=== PATIENT | female | born 1960 | race Caucasian/White ===

== ENCOUNTER 2018-04-29 11:19 | Inpatient (IN) | payer MEDICAID, OTHER ==
[~2018-04-29] VITALS: Ht 165.1 cm; Wt 58.7 kg
[~2018-04-29 11:19] MED LIST: ARIP10TA8 PO; BENZ0.5T32 PO; BUPR-93 PO; BUSP15 PO; CLON.5 PO; DIPH25 PO; ESZO3 PO; GABA-533 PO; TOPI200T PO
[2018-04-29] MEDS ORDERED: METH10SO PO (13:28)
[2018-04-29 13:41] LABS: BASOPHILS % (AUTO) 0.4 % (0.0-2.0); EOSINOPHILS % (AUTO) 1.1 % (1.0-6.0); HEMATOCRIT 32.1 % (36-46); HEMOGLOBIN 11.3 g/dL (12.0-16.0); LYMPHOCYTES # (AUTO) 1.5 K/uL (1.0-4.8); LYMPHOCYTES % (AUTO) 17.5 % (22.0-44.0); MEAN CORPUSCULAR HEMOGLOBIN 31.5 pg (26.0-34.0); MEAN CORPUSCULAR HGB CONC 35.2 G/dL (31.0-37.0); MEAN CORPUSCULAR VOLUME 90 fL (80-100); MONOCYTES # (AUTO) 0.7 K/uL (0.1-1.0); MONOCYTES % (AUTO) 8.4 % (2.0-9.0); NEUTROPHILS # (AUTO) 6.4 K/uL (1.8-7.7); NEUTROPHILS % (AUTO) 72.6 % (40.0-70.0); PLATELET COUNT (AUTO) 187 K/uL (150-450); RED BLOOD CELL COUNT(AUTO) 3.59 MIL/uL (4.00-5.20); RED CELL DISTRIBUTION WIDTH 13.7 % (11.5-14.5)
[2018-04-29 13:50] LABS: ANION GAP 8 mmol/L (8-16); CALCIUM, TOTAL 8.5 mg/dL (8.8-10.5); CARBON DIOXIDE 28 mmol/L (22-29); CHLORIDE 104 mmol/L (98-107); CREATININE 0.87 mg/dL (0.60-1.30); GLOMERULAR FILTR. RATE CALC > 60 mL/min (>60); GLUCOSE,RANDOM 93 mg/dL (70-110); POTASSIUM 4.2 mmol/L (3.5-5.1); SODIUM SERUM 140 mmol/L (136-145); UREA NITROGEN, BLOOD 17 mg/dL (7-18)
[2018-04-29 14:03] LABS: ALANINE AMINOTRANSFERASE 28 U/L (12-78); ALBUMIN 3.3 g/dL (3.4-5.0); ALKALINE PHOSPHATASE 97 U/L (46-116); ASPARTATE AMINOTRANSFERASE 31 U/L (15-37); BILIRUBIN,TOTAL 0.3 mg/dL (0.1-1.0); TOTAL PROTEIN, SERUM 6.4 g/dL (6.4-8.2)
[2018-04-29 19:53] LABS: AMPHET/METH SCREEN,URINE NEGATIVE (NEGATIVE); BARBITURATE SCREEN, URINE NEGATIVE (NEGATIVE); BENZODIAZEPINES SCREEN,URINE NEGATIVE (NEGATIVE); CANNABINOID SCREEN,URINE POSITIVE (NEGATIVE); COCAINE SCREEN,URINE NEGATIVE (NEGATIVE); METHADONE SCREEN, URINE POSITIVE (NEGATIVE); OPIATE SCREEN,URINE POSITIVE (NEGATIVE); PHENCYCLIDINE SCREEN,URINE NEGATIVE (NEGATIVE)
[2018-04-30] MEDS: HALOPERIDOL 5 MG TABLET PO PRN ×2 (00:43→11:43)
[2018-04-30] MEDS: LORazepam 2 MG TABLET PO PRN ×2 (00:43→11:43)
[2018-04-30] MEDS: ZOLPIDEM TARTRATE 10 MG TABLET PO PRN (00:43)
[2018-04-30 09:21] LABS: CHOL/HDL RATIO 2.3 (3.9-5.7); FREE T4 (FREE THYROXINE) 0.91 ng/dL (0.76-1.46); THYROID STIMULATING HORMONE 0.37 uIU/mL (0.36-3.74)
[2018-04-30] MEDS ORDERED: METHADONE HCL 10 MG TABLET PO ONE (16:15)
[2018-04-30 17:43] VITALS: BP 161/69
[2018-04-30] MEDS ORDERED: MAGNESIUM HYDROXIDE SUSPENSION 30 ML UDCUP PO PRN (17:45)
[2018-04-30] MEDS ORDERED: PETROLATUM,WHITE 71 GM JELLY TP PRN (17:45)
[2018-04-30] MEDS ORDERED: DOCUSATE SODIUM 100 MG CAPSULE PO PRN (17:45)
[2018-04-30] MEDS ORDERED: LOPERAMIDE HCL 2 MG CAPSULE PO PRN (17:45)
[2018-04-30] MEDS ORDERED: ACETAMINOPHEN 325 MG TABLET PO PRN (17:45)
[2018-04-30] MEDS ORDERED: CloNIDine HCL 0.1 MG TABLET PO PRN (17:45)
[2018-04-30] MEDS ORDERED: LISINOPRIL 20 MG TABLET PO ONE (17:45)
[2018-04-30] MEDS ORDERED: ALBUTEROL SULFATE HFA 90 MCG/PUFF 8 GM INHALER IH PRN (17:45)
[2018-04-30] MEDS ORDERED: MAG HYDROX/AL HYDROX/SIMETH ES 30 ML SUSPENSION UDCUP PO PRN (17:45)
[2018-04-30] MEDS ORDERED: ONDANSETRON HCL 4 MG TABLET PO PRN (17:45)
[2018-04-30] MEDS: GABAPENTIN 400 MG CAPSULE PO SCH (19:30)
[2018-04-30] MEDS: BusPIRone HCL 10 MG TABLET PO SCH (19:30)
[2018-05-01 07:08] VITALS: BP_SYST 148; BP_SYST 149; BP_DIAS 71; BP_DIAS 83
[2018-05-01 09:05] VITALS: BP 139/71
[2018-05-01] MEDS: ARIPiprazole 10 MG TABLET PO SCH (09:05)
[2018-05-01] MEDS: METHADONE HCL 10 MG TABLET PO SCH (09:06)
[2018-05-01] MEDS: BusPIRone HCL 10 MG TABLET PO SCH ×3 (09:06→16:53)
[2018-05-01] MEDS: GABAPENTIN 400 MG CAPSULE PO SCH ×3 (09:07→16:53)
[2018-05-01] MEDS: BuPROPion HCL XL 150 MG ER TABLET PO SCH (09:07)
[2018-05-01] MEDS: LISINOPRIL 20 MG TABLET PO SCH (09:07)
[2018-05-01] MEDS: NICOTINE 14 MG/24 HOUR PATCH TD SCH (09:10)
[2018-05-01] MEDS: BACITRACIN 28.4 GM OINTMENT TP SCH (13:00)
[2018-05-01 21:32] VITALS: BP 134/69
[2018-05-02] MEDS: BACITRACIN 28.4 GM OINTMENT TP SCH (09:00)
[2018-05-02] MEDS: GABAPENTIN 400 MG CAPSULE PO SCH ×3 (09:17→17:17)
[2018-05-02] MEDS: LISINOPRIL 20 MG TABLET PO SCH (09:17)
[2018-05-02] MEDS: METHADONE HCL 10 MG TABLET PO SCH (09:17)
[2018-05-02] MEDS: BusPIRone HCL 10 MG TABLET PO SCH ×3 (09:17→17:16)
[2018-05-02] MEDS: ARIPiprazole 10 MG TABLET PO SCH (09:17)
[2018-05-02] MEDS: NICOTINE 14 MG/24 HOUR PATCH TD SCH (09:17)
[2018-05-02] MEDS: BuPROPion HCL XL 150 MG ER TABLET PO SCH (09:18)
[2018-05-02 09:41] LABS: HEMOGLOBIN A1C 4.8 % (4.5-6.2)
[2018-05-02 09:47] LABS: % IRON SATURATION 10.7 % (22-44)
[2018-05-02 10:04] LABS: CHOL/HDL RATIO 2.6 (3.9-5.7); THYROID STIMULATING HORMONE 0.6 uIU/mL (0.36-3.74)
[2018-05-02] MEDS: LORazepam 2 MG TABLET PO PRN (20:49)
[2018-05-02 21:42] VITALS: BP 136/72
[2018-05-03] MEDS: LORazepam 2 MG TABLET PO PRN ×2 (07:39→20:40)
[2018-05-03 08:00] VITALS: BP 146/76
[2018-05-03] MEDS: BuPROPion HCL XL 150 MG ER TABLET PO SCH (08:50)
[2018-05-03] MEDS: ARIPiprazole 10 MG TABLET PO SCH (08:50)
[2018-05-03] MEDS: METHADONE HCL 10 MG TABLET PO SCH (08:53)
[2018-05-03] MEDS: BusPIRone HCL 10 MG TABLET PO SCH ×3 (08:53→16:39)
[2018-05-03] MEDS: BACITRACIN 28.4 GM OINTMENT TP SCH (08:55)
[2018-05-03] MEDS: NICOTINE 14 MG/24 HOUR PATCH TD SCH (08:55)
[2018-05-03] MEDS: LISINOPRIL 20 MG TABLET PO SCH (08:55)
[2018-05-03] MEDS: GABAPENTIN 400 MG CAPSULE PO SCH ×3 (09:51→16:39)
[2018-05-03 17:00] VITALS: BP 154/88
[2018-05-03] MEDS: QUEtiapine FUMARATE 300 MG TABLET PO SCH (20:39)
[2018-05-03] MEDS: ZOLPIDEM TARTRATE 10 MG TABLET PO PRN (22:29)
[2018-05-04 01:44] VITALS: BP 128/72
[2018-05-04] MEDS: LORazepam 2 MG TABLET PO PRN ×2 (01:47→20:23)
[2018-05-04 01:53] VITALS: BP 115/85
[2018-05-04] MEDS: GABAPENTIN 400 MG CAPSULE PO SCH ×3 (09:00→16:11)
[2018-05-04] MEDS: BACITRACIN 28.4 GM OINTMENT TP SCH (09:00)
[2018-05-04] MEDS: BusPIRone HCL 10 MG TABLET PO SCH ×3 (09:04→16:11)
[2018-05-04] MEDS: ARIPiprazole 10 MG TABLET PO SCH (09:04)
[2018-05-04] MEDS: LISINOPRIL 20 MG TABLET PO SCH (09:05)
[2018-05-04] MEDS: BuPROPion HCL XL 150 MG ER TABLET PO SCH (09:05)
[2018-05-04] MEDS: METHADONE HCL 10 MG TABLET PO SCH (09:05)
[2018-05-04] MEDS: NICOTINE 14 MG/24 HOUR PATCH TD SCH (09:06)
[2018-05-04 09:33] VITALS: BP 140/84
[2018-05-04 17:06] VITALS: BP 113/71
[2018-05-04] MEDS: QUEtiapine FUMARATE 300 MG TABLET PO SCH (20:23)
[2018-05-05 04:45] VITALS: BP 130/72
[2018-05-05] MEDS: LORazepam 2 MG TABLET PO PRN ×2 (04:52→14:01)
[2018-05-05] MEDS: LISINOPRIL 20 MG TABLET PO SCH (08:07)
[2018-05-05] MEDS: NICOTINE 14 MG/24 HOUR PATCH TD SCH (08:07)
[2018-05-05] MEDS: GABAPENTIN 400 MG CAPSULE PO SCH ×3 (08:08→16:27)
[2018-05-05] MEDS: BusPIRone HCL 10 MG TABLET PO SCH ×3 (08:09→16:27)
[2018-05-05] MEDS: ARIPiprazole 10 MG TABLET PO SCH (08:09)
[2018-05-05] MEDS: METHADONE HCL 10 MG TABLET PO SCH (08:09)
[2018-05-05] MEDS: BuPROPion HCL XL 150 MG ER TABLET PO SCH (08:14)
[2018-05-05 08:15] VITALS: BP 109/70
[2018-05-05] MEDS: BACITRACIN 28.4 GM OINTMENT TP SCH (10:04)
[2018-05-05 19:40] VITALS: BP 161/85
[2018-05-05] MEDS: QUEtiapine FUMARATE 300 MG TABLET PO SCH (20:31)
[2018-05-06] MEDS: GABAPENTIN 400 MG CAPSULE PO SCH ×3 (07:54→16:05)
[2018-05-06] MEDS: ARIPiprazole 10 MG TABLET PO SCH (07:54)
[2018-05-06] MEDS: METHADONE HCL 10 MG TABLET PO SCH (07:54)
[2018-05-06] MEDS: BuPROPion HCL XL 150 MG ER TABLET PO SCH (07:54)
[2018-05-06] MEDS: NICOTINE 14 MG/24 HOUR PATCH TD SCH (07:54)
[2018-05-06] MEDS: LISINOPRIL 20 MG TABLET PO SCH (07:55)
[2018-05-06] MEDS: BusPIRone HCL 10 MG TABLET PO SCH ×3 (07:55→16:05)
[2018-05-06 08:52] VITALS: BP 127/68
[2018-05-06] MEDS: LORazepam 2 MG TABLET PO PRN ×2 (09:07→17:11)
[2018-05-06] MEDS: BACITRACIN 28.4 GM OINTMENT TP SCH (09:08)
[2018-05-06] MEDS: HALOPERIDOL 5 MG TABLET PO PRN ×2 (16:06→20:15)
[2018-05-06 17:29] VITALS: BP 140/74
[2018-05-06] MEDS: QUEtiapine FUMARATE 300 MG TABLET PO SCH (20:15)
[2018-05-07 05:58] VITALS: BP 119/71
[2018-05-07] MEDS: METHADONE HCL 10 MG TABLET PO SCH (07:54)
[2018-05-07] MEDS: GABAPENTIN 400 MG CAPSULE PO SCH ×3 (07:54→16:00)
[2018-05-07] MEDS: ARIPiprazole 10 MG TABLET PO SCH (07:54)
[2018-05-07] MEDS: BusPIRone HCL 10 MG TABLET PO SCH ×3 (07:54→16:00)
[2018-05-07] MEDS: LISINOPRIL 20 MG TABLET PO SCH (07:54)
[2018-05-07] MEDS: NICOTINE 14 MG/24 HOUR PATCH TD SCH (07:55)
[2018-05-07] MEDS: BuPROPion HCL XL 150 MG ER TABLET PO SCH (07:55)
[2018-05-07] MEDS: LORazepam 2 MG TABLET PO PRN ×2 (07:56→21:11)
[2018-05-07 08:49] VITALS: BP 123/76
[2018-05-07] MEDS: BACITRACIN 28.4 GM OINTMENT TP SCH (10:04)
[2018-05-07] MEDS: IBUPROFEN 400 MG TABLET PO PRN (12:37)
[2018-05-07 12:39] VITALS: BP 124/71
[2018-05-07 16:51] VITALS: BP 117/66
[2018-05-07] MEDS: ZOLPIDEM TARTRATE 10 MG TABLET PO PRN (21:11)
[2018-05-08] MEDS: LORazepam 2 MG TABLET PO PRN (06:57)
[2018-05-08 06:58] VITALS: BP 142/87
[2018-05-08] MEDS: IBUPROFEN 400 MG TABLET PO PRN (06:58)
[2018-05-08] MEDS: METHADONE HCL 10 MG TABLET PO SCH (08:06)
[2018-05-08] MEDS: LISINOPRIL 20 MG TABLET PO SCH (08:07)
[2018-05-08] MEDS: NICOTINE 14 MG/24 HOUR PATCH TD SCH (08:07)
[2018-05-08] MEDS: BuPROPion HCL XL 150 MG ER TABLET PO SCH (08:07)
[2018-05-08] MEDS: GABAPENTIN 400 MG CAPSULE PO SCH (08:07)
[2018-05-08] MEDS: ARIPiprazole 10 MG TABLET PO SCH (08:07)
[2018-05-08] MEDS: BusPIRone HCL 10 MG TABLET PO SCH (08:08)
[2018-05-08] MEDS: BACITRACIN 28.4 GM OINTMENT TP SCH (08:11)
[2018-05-08] MEDS ORDERED: LISI-662 PO (09:21)
[2018-05-08] MEDS ORDERED: BACI30OI6 TP (09:23)
== END 2018-05-08 10:00 | disposition home or self-care (01) | DRG 750 ==
LOC: EMS 11:20 → 3EI 04-30 14:20 → EMS 04-30 14:49
PROVIDERS: ADMIT Psychiatry & Neurology Psychiatry; ATTEND Psychiatry & Neurology Psychiatry
DX: F25.0 Schizoaffective disorder, bipolar type (principal); R45.851 Suicidal ideations; F11.20 Opioid dependence, uncomplicated; I10 Essential (primary) hypertension; F60.3 Borderline personality disorder; F41.9 Anxiety disorder, unspecified; R00.1 Bradycardia, unspecified; D64.9 Anemia, unspecified; E83.51 Hypocalcemia; F12.10 Cannabis abuse, uncomplicated; R45.87 Impulsiveness; F19.90 Other psychoactive substance use, unspecified, uncomplicated; Z59.0 Homelessness; Z88.8 Allergy status to other drugs, medicaments and biological substances; Z79.899 Other long term (current) drug therapy; Z91.5 Personal history of self-harm
CPT/HCPCS: 82728; 83036; 83540; 83550; 84439; 84443; 99285; G0480

== ENCOUNTER 2018-07-18 18:08 | Inpatient (IN) | payer MEDICAID, OTHER ==
[~2018-07-18] VITALS: Ht 160 cm; Wt 59.0 kg
[~2018-07-18 18:08] MED LIST changes: +BACI30OI6 TP; -BENZ0.5T32 PO; -CLON.5 PO; -DIPH25 PO; -ESZO3 PO; +LISI-662 PO; +METH10SO PO; -TOPI200T PO
[2018-07-18] MEDS ORDERED: TOPI25 PO (19:41)
[2018-07-18] MEDS ORDERED: QUET300T2 PO (19:41)
[2018-07-18] MEDS ORDERED: CLON1TAB12 PO (19:41)
[2018-07-18 20:14] LABS: BASOPHILS % (AUTO) 0.8 % (0.0-2.0); EOSINOPHILS % (AUTO) 1.8 % (1.0-6.0); HEMATOCRIT 34.4 % (36-46); HEMOGLOBIN 11.5 g/dL (12.0-16.0); LYMPHOCYTES # (AUTO) 3.3 K/uL (1.0-4.8); LYMPHOCYTES % (AUTO) 38.1 % (22.0-44.0); MEAN CORPUSCULAR HGB CONC 33.5 G/dL (31.0-37.0); MEAN CORPUSCULAR VOLUME 87 fL (80-100); MONOCYTES # (AUTO) 0.9 K/uL (0.1-1.0); MONOCYTES % (AUTO) 10.2 % (2.0-9.0); NEUTROPHILS # (AUTO) 4.3 K/uL (1.8-7.7); NEUTROPHILS % (AUTO) 49.1 % (40.0-70.0); PLATELET COUNT (AUTO) 246 K/uL (150-450); RED BLOOD CELL COUNT(AUTO) 3.97 MIL/uL (4.00-5.20); RED CELL DISTRIBUTION WIDTH 13.7 % (11.5-14.5)
[2018-07-18 20:42] LABS: ANION GAP 10 mmol/L (8-16); CALCIUM, TOTAL 9.1 mg/dL (8.8-10.5); CARBON DIOXIDE 25 mmol/L (22-29); CHLORIDE 104 mmol/L (98-107); CREATININE 1.11 mg/dL (0.60-1.30); GLOMERULAR FILTR. RATE CALC 50 mL/min (>60); GLUCOSE,RANDOM 86 mg/dL (70-110); POTASSIUM 3.4 mmol/L (3.5-5.1); SODIUM SERUM 139 mmol/L (136-145); UREA NITROGEN, BLOOD 22 mg/dL (7-18)
[2018-07-18 20:47] LABS: ALANINE AMINOTRANSFERASE 14 U/L (12-78); ALBUMIN 3.4 g/dL (3.4-5.0); ALKALINE PHOSPHATASE 99 U/L (46-116); ASPARTATE AMINOTRANSFERASE 26 U/L (15-37); BILIRUBIN,TOTAL 0.4 mg/dL (0.1-1.0)
[2018-07-18 21:53] LABS: AMPHET/METH SCREEN,URINE NEGATIVE (NEGATIVE); BARBITURATE SCREEN, URINE POSITIVE (NEGATIVE); BENZODIAZEPINES SCREEN,URINE POSITIVE (NEGATIVE); CANNABINOID SCREEN,URINE NEGATIVE (NEGATIVE); COCAINE SCREEN,URINE NEGATIVE (NEGATIVE); METHADONE SCREEN, URINE POSITIVE (NEGATIVE); OPIATE SCREEN,URINE NEGATIVE (NEGATIVE)
[2018-07-18 21:54] LABS: PHENCYCLIDINE SCREEN,URINE NEGATIVE (NEGATIVE)
[2018-07-18 22:16] VITALS: BP 130/77
[2018-07-19] MEDS ORDERED: METHADONE HCL 10 MG TABLET PO SCH (09:16)
[2018-07-19 11:30] VITALS: BP 124/68
[2018-07-19] MEDS: GABAPENTIN 400 MG CAPSULE PO SCH ×2 (13:08→17:07)
[2018-07-19] MEDS: BusPIRone HCL 10 MG TABLET PO SCH ×2 (13:08→17:07)
[2018-07-19 16:35] VITALS: BP 122/72
[2018-07-19] MEDS ORDERED: DOCUSATE SODIUM 100 MG CAPSULE PO PRN (17:30)
[2018-07-19] MEDS ORDERED: MAG HYDROX/AL HYDROX/SIMETH ES 30 ML SUSPENSION UDCUP PO PRN (17:30)
[2018-07-19] MEDS ORDERED: NICOTINE 14 MG/24 HOUR PATCH TD PRN (17:30)
[2018-07-19] MEDS ORDERED: ACETAMINOPHEN 325 MG TABLET PO PRN (17:30)
[2018-07-19] MEDS ORDERED: PETROLATUM,WHITE 71 GM JELLY TP PRN (17:30)
[2018-07-19] MEDS ORDERED: GuaiFENesin/D-METHORPHAN [SUGAR-FREE] 200-20MG/10 ML SYRUP UDCUP PO PRN (17:30)
[2018-07-19] MEDS ORDERED: ONDANSETRON HCL 4 MG TABLET PO PRN (17:30)
[2018-07-19] MEDS ORDERED: ALBUTEROL SULFATE HFA 90 MCG/PUFF 8 GM INHALER IH PRN (17:30)
[2018-07-19] MEDS ORDERED: CloNIDine HCL 0.1 MG TABLET PO PRN (17:30)
[2018-07-19] MEDS ORDERED: IBUPROFEN 400 MG TABLET PO PRN (17:30)
[2018-07-19] MEDS ORDERED: LOPERAMIDE HCL 2 MG CAPSULE PO PRN (17:30)
[2018-07-19] MEDS ORDERED: MAGNESIUM HYDROXIDE SUSPENSION 30 ML UDCUP PO PRN (17:30)
[2018-07-19] MEDS: LORazepam 2 MG TABLET PO PRN ×2 (18:00→22:08)
[2018-07-19] MEDS: ZOLPIDEM TARTRATE 10 MG TABLET PO PRN (23:34)
[2018-07-19 23:38] VITALS: BP 111/73
[2018-07-20] MEDS: HALOPERIDOL 5 MG TABLET PO PRN (01:01)
[2018-07-20 05:46] VITALS: BP 130/74
[2018-07-20 08:22] VITALS: BP 122/74
[2018-07-20] MEDS: BuPROPion HCL XL 150 MG ER TABLET PO SCH (08:51)
[2018-07-20] MEDS: GABAPENTIN 400 MG CAPSULE PO SCH ×3 (08:51→17:55)
[2018-07-20] MEDS: BusPIRone HCL 10 MG TABLET PO SCH ×3 (08:53→17:55)
[2018-07-20] MEDS: ARIPiprazole 10 MG TABLET PO SCH (08:53)
[2018-07-20] MEDS: LISINOPRIL 20 MG TABLET PO SCH (08:54)
[2018-07-20] MEDS ORDERED: METHADONE HCL 10 MG TABLET PO SCH (09:00)
[2018-07-20 09:13] LABS: APPEARANCE,URINE CLEAR (CLEAR); BILIRUBIN,URINE NEGATIVE (NEGATIVE); GLUCOSE, URINE (UA) NEGATIVE (NEGATIVE); KETONES,URINE NEGATIVE (NEGATIVE); LEUKOCYTE ESTERASE ,URINE NEGATIVE (NEGATIVE); NITRATE,URINE NEGATIVE (NEGATIVE); OCCULT BLOOD,URINE NEGATIVE (NEGATIVE); PROTEIN,URINE NEGATIVE (NEGATIVE); UROBILINOGEN,URINE 0.2 mg/dL (<=1.0)
[2018-07-20] MEDS: LORazepam 2 MG TABLET PO PRN (23:19)
[2018-07-21 00:56] VITALS: BP 122/76
[2018-07-21 01:20] VITALS: BP 122/76
[2018-07-21] MEDS: METHADONE HCL 10 MG TABLET PO SCH (07:06)
[2018-07-21] MEDS: BusPIRone HCL 10 MG TABLET PO SCH ×3 (08:59→17:00)
[2018-07-21] MEDS: GABAPENTIN 400 MG CAPSULE PO SCH ×3 (09:00→17:00)
[2018-07-21] MEDS ORDERED: LevETIRAcetam 500 MG TABLET PO SCH (09:00)
[2018-07-21] MEDS: LISINOPRIL 20 MG TABLET PO SCH (09:00)
[2018-07-21] MEDS: ARIPiprazole 10 MG TABLET PO SCH (09:00)
[2018-07-21] MEDS: BuPROPion HCL XL 150 MG ER TABLET PO SCH (09:00)
[2018-07-21] MEDS ORDERED: ClonazePAM 0.5 MG TABLET PO SCH (10:00)
[2018-07-21 10:29] VITALS: BP 126/78
[2018-07-21 21:26] VITALS: BP 125/74
[2018-07-21 23:10] VITALS: BP 119/71
[2018-07-21] MEDS: LevETIRAcetam 500 MG TABLET PO SCH (23:30)
[2018-07-22] MEDS ORDERED: LORazepam 2 MG TABLET PO ONE
[2018-07-22 01:23] VITALS: BP 119/75
[2018-07-22] MEDS: METHADONE HCL 10 MG TABLET PO SCH (06:44)
[2018-07-22 08:22] VITALS: BP 137/94
[2018-07-22] MEDS: GABAPENTIN 400 MG CAPSULE PO SCH ×3 (10:08→18:00)
[2018-07-22] MEDS: LISINOPRIL 20 MG TABLET PO SCH (10:08)
[2018-07-22] MEDS: BuPROPion HCL XL 150 MG ER TABLET PO SCH (10:08)
[2018-07-22] MEDS: BusPIRone HCL 10 MG TABLET PO SCH ×3 (10:08→18:00)
[2018-07-22] MEDS: LevETIRAcetam 500 MG TABLET PO SCH ×2 (10:08→18:00)
[2018-07-22] MEDS: ARIPiprazole 10 MG TABLET PO SCH (10:08)
[2018-07-22 16:30] VITALS: BP 127/67
[2018-07-22] MEDS: ZOLPIDEM TARTRATE 10 MG TABLET PO PRN (21:52)
[2018-07-23 05:19] VITALS: BP 100/66
[2018-07-23] MEDS: METHADONE HCL 10 MG TABLET PO SCH (07:00)
[2018-07-23 09:54] VITALS: BP 99/60
[2018-07-23] MEDS: ARIPiprazole 10 MG TABLET PO SCH (10:28)
[2018-07-23] MEDS: BusPIRone HCL 10 MG TABLET PO SCH ×3 (10:28→16:37)
[2018-07-23] MEDS: BuPROPion HCL XL 150 MG ER TABLET PO SCH (10:28)
[2018-07-23] MEDS: LISINOPRIL 20 MG TABLET PO SCH (10:28)
[2018-07-23] MEDS: GABAPENTIN 400 MG CAPSULE PO SCH ×3 (10:28→16:37)
[2018-07-23] MEDS: LACOSAMIDE 100 MG TABLET PO SCH ×2 (10:28→16:37)
[2018-07-23 16:04] VITALS: BP 109/63
[2018-07-23] MEDS: DiphenhydrAMINE HCL 25 MG CAPSULE PO SCH (20:52)
[2018-07-24] MEDS: METHADONE HCL 10 MG TABLET PO SCH (06:54)
[2018-07-24 10:10] VITALS: BP 143/75
[2018-07-24] MEDS: ARIPiprazole 10 MG TABLET PO SCH (10:50)
[2018-07-24] MEDS: LISINOPRIL 20 MG TABLET PO SCH (10:50)
[2018-07-24] MEDS: BusPIRone HCL 10 MG TABLET PO SCH ×3 (10:50→17:09)
[2018-07-24] MEDS: GABAPENTIN 400 MG CAPSULE PO SCH ×3 (10:50→17:09)
[2018-07-24] MEDS: LACOSAMIDE 100 MG TABLET PO SCH (10:57)
[2018-07-24] MEDS: BuPROPion HCL XL 150 MG ER TABLET PO SCH (10:58)
[2018-07-24 16:06] VITALS: BP 109/62
[2018-07-24] MEDS: TOPIRAMATE 25 MG TABLET PO SCH (17:08)
[2018-07-24] MEDS: LORazepam 2 MG TABLET PO PRN (18:16)
[2018-07-24] MEDS ORDERED: LACOSAMIDE 100 MG TABLET PO SCH (21:00)
[2018-07-24] MEDS: DiphenhydrAMINE HCL 25 MG CAPSULE PO SCH (21:33)
[2018-07-25] MEDS: LORazepam 2 MG TABLET PO PRN ×2 (01:50→13:03)
[2018-07-25 01:54] VITALS: BP 131/76
[2018-07-25 06:39] VITALS: BP 108/74
[2018-07-25] MEDS: METHADONE HCL 10 MG TABLET PO SCH (06:56)
[2018-07-25] MEDS ORDERED: LACOSAMIDE 100 MG TABLET PO SCH (09:00)
[2018-07-25] MEDS: BuPROPion HCL XL 150 MG ER TABLET PO SCH (09:16)
[2018-07-25] MEDS: ARIPiprazole 10 MG TABLET PO SCH (09:16)
[2018-07-25] MEDS: GABAPENTIN 400 MG CAPSULE PO SCH ×3 (09:16→17:07)
[2018-07-25] MEDS: TOPIRAMATE 25 MG TABLET PO SCH ×2 (09:16→17:07)
[2018-07-25] MEDS: LISINOPRIL 20 MG TABLET PO SCH (09:16)
[2018-07-25] MEDS: BusPIRone HCL 10 MG TABLET PO SCH ×3 (09:17→17:08)
[2018-07-25 10:00] VITALS: BP 115/68
[2018-07-25 17:30] VITALS: BP 132/74
[2018-07-25] MEDS: DiphenhydrAMINE HCL 25 MG CAPSULE PO SCH (20:26)
[2018-07-26] MEDS: LORazepam 2 MG TABLET PO PRN (00:11)
[2018-07-26] MEDS: ZOLPIDEM TARTRATE 10 MG TABLET PO PRN (01:52)
[2018-07-26] MEDS: METHADONE HCL 10 MG TABLET PO SCH (07:02)
[2018-07-26] MEDS ORDERED: DIPH50 PO (08:30)
[2018-07-26 08:45] VITALS: BP 121/67
[2018-07-26] MEDS: BuPROPion HCL XL 150 MG ER TABLET PO SCH (08:57)
[2018-07-26] MEDS: LISINOPRIL 20 MG TABLET PO SCH (08:57)
[2018-07-26] MEDS: TOPIRAMATE 25 MG TABLET PO SCH ×2 (08:57→17:02)
[2018-07-26] MEDS: GABAPENTIN 400 MG CAPSULE PO SCH ×3 (08:57→17:02)
[2018-07-26] MEDS: BusPIRone HCL 10 MG TABLET PO SCH ×3 (08:57→17:02)
[2018-07-26] MEDS: ARIPiprazole 10 MG TABLET PO SCH (08:57)
[2018-07-26 17:26] VITALS: BP 108/63
[2018-07-26] MEDS: DiphenhydrAMINE HCL 25 MG CAPSULE PO SCH (20:54)
[2018-07-27] MEDS: LORazepam 2 MG TABLET PO PRN ×3 (01:21→15:46)
[2018-07-27] MEDS: ZOLPIDEM TARTRATE 10 MG TABLET PO PRN (01:23)
[2018-07-27 01:46] VITALS: BP 119/65
[2018-07-27 02:05] VITALS: BP 110/66
[2018-07-27] MEDS: HALOPERIDOL 5 MG TABLET PO PRN ×2 (05:29→15:46)
[2018-07-27] MEDS: METHADONE HCL 10 MG TABLET PO SCH (06:45)
[2018-07-27 09:18] VITALS: BP 134/73
[2018-07-27] MEDS: ARIPiprazole 10 MG TABLET PO SCH (09:56)
[2018-07-27] MEDS: BusPIRone HCL 10 MG TABLET PO SCH ×3 (09:57→17:00)
[2018-07-27] MEDS: GABAPENTIN 400 MG CAPSULE PO SCH ×3 (09:57→17:00)
[2018-07-27] MEDS: BuPROPion HCL XL 150 MG ER TABLET PO SCH (09:57)
[2018-07-27] MEDS: TOPIRAMATE 25 MG TABLET PO SCH ×2 (09:57→17:00)
[2018-07-27] MEDS: LISINOPRIL 20 MG TABLET PO SCH (09:58)
[2018-07-27 19:36] VITALS: BP 130/67
[2018-07-27] MEDS: DiphenhydrAMINE HCL 25 MG CAPSULE PO SCH (20:20)
[2018-07-28] MEDS: HALOPERIDOL 5 MG TABLET PO PRN (03:26)
[2018-07-28] MEDS: LORazepam 2 MG TABLET PO PRN (03:26)
[2018-07-28 03:27] VITALS: BP 106/66
[2018-07-28 06:38] VITALS: BP 103/60
[2018-07-28] MEDS: METHADONE HCL 10 MG TABLET PO SCH (06:45)
[2018-07-28 08:55] VITALS: BP 95/56
[2018-07-28] MEDS: GABAPENTIN 400 MG CAPSULE PO SCH ×2 (08:59→13:00)
[2018-07-28] MEDS: BuPROPion HCL XL 150 MG ER TABLET PO SCH (08:59)
[2018-07-28] MEDS: TOPIRAMATE 25 MG TABLET PO SCH (08:59)
[2018-07-28] MEDS: LISINOPRIL 20 MG TABLET PO SCH (09:00)
[2018-07-28] MEDS: BusPIRone HCL 10 MG TABLET PO SCH ×2 (09:00→13:00)
[2018-07-28] MEDS: ARIPiprazole 10 MG TABLET PO SCH (09:00)
== END 2018-07-28 14:45 | disposition home or self-care (01) | DRG 750 ==
LOC: EMS 18:09 → 3EI 21:00
PROVIDERS: ADMIT Psychiatry & Neurology Psychiatry; ATTEND Psychiatry & Neurology Psychiatry
DX: F25.0 Schizoaffective disorder, bipolar type (principal); F11.20 Opioid dependence, uncomplicated; Z59.0 Homelessness; E78.00 Pure hypercholesterolemia, unspecified; I10 Essential (primary) hypertension; F60.3 Borderline personality disorder; D64.9 Anemia, unspecified; E78.5 Hyperlipidemia, unspecified; E87.6 Hypokalemia; F41.9 Anxiety disorder, unspecified; G40.909 Epilepsy, unspecified, not intractable, without status epilepticus; Z91.5 Personal history of self-harm
CPT/HCPCS: 84146; 95816; 99285; G0480

== ENCOUNTER 2018-08-06 16:35 | Inpatient (IN) | payer MEDICAID, OTHER ==
[~2018-08-06] VITALS: Ht 162.6 cm; Wt 54.4 kg
[~2018-08-06 16:35] MED LIST changes: -BACI30OI6 TP; +DIPH50 PO; +TOPI25 PO
[2018-08-06 17:14] LABS: BASOPHILS % (AUTO) 0.3 % (0.0-2.0); HEMATOCRIT 35.6 % (36-46); HEMOGLOBIN 12.1 g/dL (12.0-16.0); LYMPHOCYTES # (AUTO) 3.1 K/uL (1.0-4.8); MEAN CORPUSCULAR VOLUME 85 fL (80-100); MONOCYTES # (AUTO) 0.7 K/uL (0.1-1.0); NEUTROPHILS # (AUTO) 7.1 K/uL (1.8-7.7); NEUTROPHILS % (AUTO) 64.7 % (40.0-70.0); PLATELET COUNT (AUTO) 267 K/uL (150-450); RED BLOOD CELL COUNT(AUTO) 4.18 MIL/uL (4.00-5.20)
[2018-08-06 17:26] LABS: ANION GAP 9 mmol/L (8-16); CALCIUM, TOTAL 9.2 mg/dL (8.8-10.5); CARBON DIOXIDE 26 mmol/L (22-29); CHLORIDE 103 mmol/L (98-107); CREATININE 1.18 mg/dL (0.60-1.30); GLOMERULAR FILTR. RATE CALC 47 mL/min (>60); GLUCOSE,RANDOM 106 mg/dL (70-110); POTASSIUM 3.6 mmol/L (3.5-5.1); SODIUM SERUM 138 mmol/L (136-145); UREA NITROGEN, BLOOD 21 mg/dL (7-18)
[2018-08-06 17:34] LABS: ALANINE AMINOTRANSFERASE 21 U/L (12-78); ALBUMIN 3.5 g/dL (3.4-5.0); ALKALINE PHOSPHATASE 97 U/L (46-116); ASPARTATE AMINOTRANSFERASE 17 U/L (15-37); BILIRUBIN,TOTAL 0.3 mg/dL (0.1-1.0); TOTAL PROTEIN, SERUM 7.3 g/dL (6.4-8.2)
[2018-08-06 18:17] LABS: AMPHET/METH SCREEN,URINE POSITIVE (NEGATIVE); BARBITURATE SCREEN, URINE NEGATIVE (NEGATIVE); BENZODIAZEPINES SCREEN,URINE NEGATIVE (NEGATIVE); CANNABINOID SCREEN,URINE POSITIVE (NEGATIVE); COCAINE SCREEN,URINE NEGATIVE (NEGATIVE); METHADONE SCREEN, URINE POSITIVE (NEGATIVE); OPIATE SCREEN,URINE NEGATIVE (NEGATIVE)
[2018-08-06 18:18] LABS: PHENCYCLIDINE SCREEN,URINE NEGATIVE (NEGATIVE)
[2018-08-06] MEDS ORDERED: ZOLPIDEM TARTRATE 10 MG TABLET PO PRN (18:30)
[2018-08-06] MEDS ORDERED: LORazepam 1 MG TABLET PO ONE (18:30)
[2018-08-07 00:33] VITALS: BP 122/75
[2018-08-07] MEDS: LORazepam 2 MG TABLET PO PRN ×2 (00:42→21:30)
[2018-08-07] MEDS ORDERED: PNEUMOCOCCAL VACCINE POLYVALENT 0.5 ML VIAL [PPSV23] IM ONE (01:00)
[2018-08-07] MEDS ORDERED: -PHARMACY VACCINE NOTE- MISC ONE (01:00)
[2018-08-07] MEDS ORDERED: LOPERAMIDE HCL 2 MG CAPSULE PO PRN (07:00)
[2018-08-07] MEDS ORDERED: DOCUSATE SODIUM 100 MG CAPSULE PO PRN (07:00)
[2018-08-07] MEDS ORDERED: ONDANSETRON HCL 4 MG TABLET PO PRN (07:00)
[2018-08-07] MEDS ORDERED: PETROLATUM,WHITE 71 GM JELLY TP PRN (07:00)
[2018-08-07] MEDS ORDERED: MAGNESIUM HYDROXIDE SUSPENSION 30 ML UDCUP PO PRN (07:00)
[2018-08-07] MEDS ORDERED: NICOTINE 14 MG/24 HOUR PATCH TD PRN (07:00)
[2018-08-07] MEDS ORDERED: IBUPROFEN 400 MG TABLET PO PRN (07:00)
[2018-08-07] MEDS ORDERED: MAG HYDROX/AL HYDROX/SIMETH ES 30 ML SUSPENSION UDCUP PO PRN (07:00)
[2018-08-07] MEDS ORDERED: CloNIDine HCL 0.1 MG TABLET PO PRN (07:00)
[2018-08-07] MEDS ORDERED: ACETAMINOPHEN 325 MG TABLET PO PRN (07:00)
[2018-08-07] MEDS ORDERED: DiphenhydrAMINE HCL 50 MG/ML VIAL ONE (07:35)
[2018-08-07] MEDS ORDERED: LORazepam 2 MG/ML VIAL ONE (07:35)
[2018-08-07] MEDS ORDERED: HALOPERIDOL LACTATE 5 MG/ML VIAL ONE (07:35)
[2018-08-07] MEDS ORDERED: HALOPERIDOL LACTATE 5 MG/ML VIAL IM ONE ×2 (08:00→16:00)
[2018-08-07] MEDS ORDERED: LORazepam 2 MG/ML VIAL IM ONE ×2 (08:00→16:00)
[2018-08-07] MEDS ORDERED: DiphenhydrAMINE HCL 50 MG/ML VIAL IM ONE ×2 (08:00→16:00)
[2018-08-07] MEDS: NICOTINE 14 MG/24 HOUR PATCH TD SCH (09:00)
[2018-08-07] MEDS: BusPIRone HCL 10 MG TABLET PO SCH ×2 (12:30→17:00)
[2018-08-07] MEDS: GABAPENTIN 400 MG CAPSULE PO SCH ×2 (12:30→17:00)
[2018-08-07] MEDS: METHADONE HCL 10 MG/5 ML SOLUTION ORAL.SYG PO SCH (12:35)
[2018-08-07 17:08] VITALS: BP 117/53
[2018-08-07] MEDS: HALOPERIDOL 5 MG TABLET PO PRN (21:30)
[2018-08-08 03:00] VITALS: BP 111/74
[2018-08-08] MEDS: LORazepam 2 MG TABLET PO PRN ×3 (03:10→16:46)
[2018-08-08 08:09] VITALS: BP 121/72
[2018-08-08] MEDS ORDERED: ARIP30TA PO (08:22)
[2018-08-08] MEDS: GABAPENTIN 400 MG CAPSULE PO SCH ×3 (08:28→16:45)
[2018-08-08] MEDS: BuPROPion HCL XL 150 MG ER TABLET PO SCH (08:28)
[2018-08-08] MEDS: LISINOPRIL 20 MG TABLET PO SCH (08:28)
[2018-08-08] MEDS: ARIPiprazole 15 MG TABLET PO SCH (08:28)
[2018-08-08] MEDS: BusPIRone HCL 10 MG TABLET PO SCH ×3 (08:28→16:46)
[2018-08-08] MEDS: NICOTINE 14 MG/24 HOUR PATCH TD SCH (08:29)
[2018-08-08] MEDS: METHADONE HCL 10 MG/5 ML SOLUTION ORAL.SYG PO SCH (08:32)
[2018-08-08] MEDS ORDERED: TOPIRAMATE 25 MG TABLET PO SCH (09:00)
[2018-08-08] MEDS: HALOPERIDOL 5 MG TABLET PO PRN ×2 (10:54→16:46)
[2018-08-08] MEDS ORDERED: BUSP10TA23 PO (15:48)
[2018-08-08] MEDS: TOPIRAMATE 25 MG TABLET PO SCH (16:46)
[2018-08-08] MEDS: MUPIROCIN CALCIUM 2% 22 GM OINTMENT NASAL SCH (17:00)
[2018-08-09 03:19] VITALS: BP 107/73
[2018-08-09] MEDS: LORazepam 2 MG TABLET PO PRN ×4 (03:20→18:29)
[2018-08-09] MEDS: HALOPERIDOL 5 MG TABLET PO PRN ×3 (05:36→14:20)
[2018-08-09 07:40] LABS: CHOL/HDL RATIO 2.8 (3.9-5.7)
[2018-08-09 08:03] VITALS: BP 113/76
[2018-08-09 08:30] LABS: APPEARANCE,URINE CLEAR (CLEAR); BILIRUBIN,URINE NEGATIVE (NEGATIVE); GLUCOSE, URINE (UA) NEGATIVE (NEGATIVE); KETONES,URINE NEGATIVE (NEGATIVE); LEUKOCYTE ESTERASE ,URINE MODERATE (NEGATIVE); NITRATE,URINE NEGATIVE (NEGATIVE); OCCULT BLOOD,URINE NEGATIVE (NEGATIVE); PH,URINE 6.5 (5.0-8.0); PROTEIN,URINE NEGATIVE (NEGATIVE); UROBILINOGEN,URINE 0.2 mg/dL (<=1.0)
[2018-08-09 09:01] LABS: BACTERIA,URINE Few /HPF (None Seen); RBC,URINE 0-2 /HPF (0-2); SQUAMOUS EPITHELIAL CELL,UR Moderate /LPF (None Seen)
[2018-08-09] MEDS: METHADONE HCL 10 MG/5 ML SOLUTION ORAL.SYG PO SCH (09:12)
[2018-08-09] MEDS: GABAPENTIN 400 MG CAPSULE PO SCH ×3 (09:13→17:02)
[2018-08-09] MEDS: BuPROPion HCL XL 150 MG ER TABLET PO SCH (09:13)
[2018-08-09] MEDS: LISINOPRIL 20 MG TABLET PO SCH (09:14)
[2018-08-09] MEDS: ARIPiprazole 15 MG TABLET PO SCH (09:14)
[2018-08-09] MEDS: TOPIRAMATE 25 MG TABLET PO SCH ×2 (09:14→17:02)
[2018-08-09] MEDS: BusPIRone HCL 10 MG TABLET PO SCH ×3 (09:14→17:03)
[2018-08-09] MEDS: NICOTINE 14 MG/24 HOUR PATCH TD SCH (09:15)
[2018-08-09] MEDS: MUPIROCIN CALCIUM 2% 22 GM OINTMENT NASAL SCH ×2 (09:17→17:03)
[2018-08-09 16:25] VITALS: BP 110/59
[2018-08-09] MEDS: CIPROFLOXACIN HCL 500 MG TABLET PO SCH (18:28)
[2018-08-10 00:34] VITALS: BP 101/62
[2018-08-10 04:25] VITALS: BP 113/64
[2018-08-10] MEDS: LORazepam 2 MG TABLET PO PRN ×3 (04:29→16:34)
[2018-08-10] MEDS: HALOPERIDOL 5 MG TABLET PO PRN ×3 (06:52→17:00)
[2018-08-10 08:16] VITALS: BP 120/63
[2018-08-10] MEDS: CIPROFLOXACIN HCL 500 MG TABLET PO SCH ×2 (09:18→16:33)
[2018-08-10] MEDS: GABAPENTIN 400 MG CAPSULE PO SCH ×3 (09:19→16:32)
[2018-08-10] MEDS: TOPIRAMATE 25 MG TABLET PO SCH ×2 (09:19→16:33)
[2018-08-10] MEDS: LISINOPRIL 20 MG TABLET PO SCH (09:19)
[2018-08-10] MEDS: BuPROPion HCL XL 150 MG ER TABLET PO SCH (09:19)
[2018-08-10] MEDS: MUPIROCIN CALCIUM 2% 22 GM OINTMENT NASAL SCH ×2 (09:20→16:34)
[2018-08-10] MEDS: BusPIRone HCL 10 MG TABLET PO SCH ×3 (09:20→16:33)
[2018-08-10] MEDS: ARIPiprazole 15 MG TABLET PO SCH (09:20)
[2018-08-10] MEDS: NICOTINE 14 MG/24 HOUR PATCH TD SCH (09:21)
[2018-08-10] MEDS: METHADONE HCL 10 MG/5 ML SOLUTION ORAL.SYG PO SCH (09:28)
[2018-08-10 16:18] VITALS: BP 113/75
[2018-08-11 01:10] VITALS: BP 110/64
[2018-08-11] MEDS: HALOPERIDOL 5 MG TABLET PO PRN ×2 (01:14→18:24)
[2018-08-11] MEDS: LORazepam 2 MG TABLET PO PRN ×2 (01:14→18:24)
[2018-08-11] MEDS: MUPIROCIN CALCIUM 2% 22 GM OINTMENT NASAL SCH ×2 (09:29→16:55)
[2018-08-11] MEDS: METHADONE HCL 10 MG/5 ML SOLUTION ORAL.SYG PO SCH (09:33)
[2018-08-11] MEDS: BuPROPion HCL XL 150 MG ER TABLET PO SCH (09:34)
[2018-08-11] MEDS: ARIPiprazole 15 MG TABLET PO SCH (09:34)
[2018-08-11] MEDS: GABAPENTIN 400 MG CAPSULE PO SCH ×3 (09:34→16:54)
[2018-08-11] MEDS: BusPIRone HCL 10 MG TABLET PO SCH ×3 (09:35→16:54)
[2018-08-11] MEDS: TOPIRAMATE 25 MG TABLET PO SCH ×2 (09:35→16:54)
[2018-08-11] MEDS: LISINOPRIL 20 MG TABLET PO SCH (09:35)
[2018-08-11] MEDS: CIPROFLOXACIN HCL 500 MG TABLET PO SCH ×2 (09:35→16:54)
[2018-08-11] MEDS: NICOTINE 14 MG/24 HOUR PATCH TD SCH (09:37)
[2018-08-11 16:07] VITALS: BP 112/68
[2018-08-12 01:18] VITALS: BP 108/70
[2018-08-12] MEDS: HALOPERIDOL 5 MG TABLET PO PRN ×4 (02:56→21:05)
[2018-08-12] MEDS: LORazepam 2 MG TABLET PO PRN ×4 (02:56→21:05)
[2018-08-12 08:25] VITALS: BP 116/67
[2018-08-12] MEDS: TOPIRAMATE 25 MG TABLET PO SCH ×2 (09:36→16:32)
[2018-08-12] MEDS: LISINOPRIL 20 MG TABLET PO SCH (09:36)
[2018-08-12] MEDS: GABAPENTIN 400 MG CAPSULE PO SCH ×3 (09:36→16:31)
[2018-08-12] MEDS: METHADONE HCL 10 MG/5 ML SOLUTION ORAL.SYG PO SCH (09:36)
[2018-08-12] MEDS: BusPIRone HCL 10 MG TABLET PO SCH ×3 (09:36→16:32)
[2018-08-12] MEDS: CIPROFLOXACIN HCL 500 MG TABLET PO SCH ×2 (09:36→16:32)
[2018-08-12] MEDS: BuPROPion HCL XL 150 MG ER TABLET PO SCH (09:36)
[2018-08-12] MEDS: ARIPiprazole 15 MG TABLET PO SCH (09:37)
[2018-08-12] MEDS: MUPIROCIN CALCIUM 2% 22 GM OINTMENT NASAL SCH ×2 (09:37→16:32)
[2018-08-12] MEDS: NICOTINE 14 MG/24 HOUR PATCH TD SCH (09:41)
[2018-08-12 16:19] VITALS: BP 118/64
[2018-08-12] MEDS ORDERED: TOPI25 PO (19:48)
[2018-08-12] MEDS ORDERED: CIPR-278 PO (19:56)
[2018-08-12] MEDS ORDERED: BUPR-93 PO (20:34)
[2018-08-13 00:34] VITALS: BP 107/68
[2018-08-13] MEDS: HALOPERIDOL 5 MG TABLET PO PRN (05:33)
[2018-08-13] MEDS: LORazepam 2 MG TABLET PO PRN (05:33)
== END 2018-08-13 07:15 | disposition short-term general hospital (02) | DRG 750 ==
LOC: EMS 16:36 → B3A 21:00
PROVIDERS: ADMIT Psychiatry & Neurology Psychiatry; ATTEND Psychiatry & Neurology Psychiatry
DX: F25.0 Schizoaffective disorder, bipolar type (principal); F11.20 Opioid dependence, uncomplicated; F60.3 Borderline personality disorder; N39.0 Urinary tract infection, site not specified; E78.5 Hyperlipidemia, unspecified; E78.00 Pure hypercholesterolemia, unspecified; D64.9 Anemia, unspecified; F41.9 Anxiety disorder, unspecified; G40.909 Epilepsy, unspecified, not intractable, without status epilepticus; I10 Essential (primary) hypertension; Z91.5 Personal history of self-harm; Z59.0 Homelessness; Z28.1 Immunization not carried out because of patient decision for reasons of belief or group pressure; Z88.8 Allergy status to other drugs, medicaments and biological substances; Z71.51 Drug abuse counseling and surveillance of drug abuser; Z79.899 Other long term (current) drug therapy
CPT/HCPCS: 87081; 87086; 90686; G0480; J1200; J1630; J2060

== ENCOUNTER 2019-02-13 15:46 | Emergency (ER) | payer MEDICAID, OTHER ==
[~2019-02-13] VITALS: Ht 165.1 cm; Wt 68.2 kg
[~2019-02-13 15:46] MED LIST changes: -ARIP10TA8 PO; +ARIP30TA PO; +BUSP10TA23 PO; -BUSP15 PO; +CIPR-278 PO; -DIPH50 PO; -METH10SO PO
[2019-02-13 15:59] VITALS: BP 122/72
[2019-02-13] MEDS ORDERED: ASPI81 PO (16:09)
[2019-02-13] MEDS ORDERED: SIMV-260 PO (16:09)
[2019-02-13] MEDS ORDERED: IBUP-2071 PO (16:09)
[2019-02-13] MEDS ORDERED: LORA10TA7 PO (16:09)
[2019-02-13] MEDS ORDERED: KETOROLAC TROMETHAMINE 30 MG/ML VIAL IM ONE (16:45)
[2019-02-13] MEDS ORDERED: DOXYCYCLINE HYCLATE 100 MG CAPSULE PO ONE (16:45)
== END 2019-02-13 17:14 | disposition home or self-care (01) ==
LOC: EMS 15:48
DX: S61.412A Laceration without foreign body of left hand, initial encounter (principal); L03.114 Cellulitis of left upper limb; L03.012 Cellulitis of left finger; I10 Essential (primary) hypertension; E78.00 Pure hypercholesterolemia, unspecified; F31.9 Bipolar disorder, unspecified; F20.9 Schizophrenia, unspecified; F15.90 Other stimulant use, unspecified, uncomplicated; F17.210 Nicotine dependence, cigarettes, uncomplicated; Z88.8 Allergy status to other drugs, medicaments and biological substances; Z79.82 Long term (current) use of aspirin; W45.8XXA Other foreign body or object entering through skin, initial encounter; Y93.89 Activity, other specified; Y92.89 Other specified places as the place of occurrence of the external cause; Y99.8 Other external cause status
CPT/HCPCS: 96372; 99283; 99406; J1885

== ENCOUNTER 2019-03-04 19:22 | Inpatient (IN) | payer MEDICAID, OTHER ==
[~2019-03-04] VITALS: Ht 152.4 cm; Wt 64.1 kg
[~2019-03-04 19:22] MED LIST changes: -ARIP30TA PO; +ASPI81 PO; -BUPR-93 PO; -BUSP10TA23 PO; -CIPR-278 PO; +IBUP-2071 PO; +LORA10TA7 PO; +SIMV-260 PO
[2019-03-04] MEDS ORDERED: HYDR25TA PO (19:30)
[2019-03-04] MEDS ORDERED: QUET300T2 PO (19:30)
[2019-03-04] MEDS ORDERED: MIRT15 PO (19:30)
[2019-03-04] MEDS ORDERED: ARIP15TA2 PO (19:30)
[2019-03-04] MEDS ORDERED: METH10 PO (19:30)
[2019-03-04 20:35] LABS: BASOPHILS % (AUTO) 0.5 % (0.0-2.0); EOSINOPHILS % (AUTO) 1.1 % (1.0-6.0); HEMATOCRIT 38.6 % (36-46); HEMOGLOBIN 12.7 g/dL (12.0-16.0); LYMPHOCYTES # (AUTO) 2.6 K/uL (1.0-4.8); LYMPHOCYTES % (AUTO) 23.9 % (22.0-44.0); MEAN CORPUSCULAR HGB CONC 32.9 G/dL (31.0-37.0); MEAN CORPUSCULAR VOLUME 91 fL (80-100); MONOCYTES # (AUTO) 0.8 K/uL (0.1-1.0); MONOCYTES % (AUTO) 7.1 % (2.0-9.0); NEUTROPHILS # (AUTO) 7.3 K/uL (1.8-7.7); NEUTROPHILS % (AUTO) 67.4 % (40.0-70.0); PLATELET COUNT (AUTO) 270 K/uL (150-450); RED BLOOD CELL COUNT(AUTO) 4.24 MIL/uL (4.00-5.20); RED CELL DISTRIBUTION WIDTH 13.4 % (11.5-14.5)
[2019-03-04 20:38] LABS: AMPHET/METH SCREEN,URINE NEGATIVE (NEGATIVE); BARBITURATE SCREEN, URINE NEGATIVE (NEGATIVE); BENZODIAZEPINES SCREEN,URINE NEGATIVE (NEGATIVE); CANNABINOID SCREEN,URINE POSITIVE (NEGATIVE); COCAINE SCREEN,URINE NEGATIVE (NEGATIVE); METHADONE SCREEN, URINE POSITIVE (NEGATIVE); OPIATE SCREEN,URINE NEGATIVE (NEGATIVE); PHENCYCLIDINE SCREEN,URINE NEGATIVE (NEGATIVE)
[2019-03-04 20:43] LABS: APPEARANCE,URINE CLEAR (CLEAR); BILIRUBIN,URINE NEGATIVE (NEGATIVE); GLUCOSE, URINE (UA) NEGATIVE (NEGATIVE); KETONES,URINE NEGATIVE (NEGATIVE); LEUKOCYTE ESTERASE ,URINE MODERATE (NEGATIVE); NITRATE,URINE NEGATIVE (NEGATIVE); OCCULT BLOOD,URINE TRACE (NEGATIVE); PROTEIN,URINE NEGATIVE (NEGATIVE); UROBILINOGEN,URINE 0.2 mg/dL (<=1.0)
[2019-03-04 20:44] LABS: BACTERIA,URINE Few /HPF (None Seen); SQUAMOUS EPITHELIAL CELL,UR Many /LPF (None Seen); WBC,URINE 26-50 /HPF (0-5)
[2019-03-04 20:51] LABS: ALANINE AMINOTRANSFERASE 17 U/L (12-78); ALBUMIN 3.6 g/dL (3.4-5.0); ALKALINE PHOSPHATASE 93 U/L (46-116); ANION GAP 6 mmol/L (8-16); ASPARTATE AMINOTRANSFERASE 20 U/L (15-37); BILIRUBIN,TOTAL 0.1 mg/dL (0.1-1.0); CALCIUM, TOTAL 8.9 mg/dL (8.8-10.5); CARBON DIOXIDE 31 mmol/L (22-29); CHLORIDE 100 mmol/L (98-107); CREATININE 1.29 mg/dL (0.60-1.30); GLOMERULAR FILTR. RATE CALC 42 mL/min (>60); GLUCOSE,RANDOM 95 mg/dL (70-110); POTASSIUM 3.5 mmol/L (3.5-5.1); SODIUM SERUM 137 mmol/L (136-145); UREA NITROGEN, BLOOD 15 mg/dL (7-18)
[2019-03-04] MEDS ORDERED: QUEtiapine FUMARATE 100 MG TABLET PO ONE (21:15)
[2019-03-04] MEDS ORDERED: ZOLPIDEM TARTRATE 10 MG TABLET PO PRN (21:30)
[2019-03-05] MEDS: LORazepam 2 MG TABLET PO PRN ×4 (00:27→21:34)
[2019-03-05 00:50] VITALS: BP 121/67
[2019-03-05] MEDS ORDERED: MAG HYDROX/AL HYDROX/SIMETH ES 30 ML SUSPENSION UDCUP PO PRN (08:00)
[2019-03-05] MEDS ORDERED: BENZOCAINE/MENTHOL LOZENGE MM PRN (08:00)
[2019-03-05] MEDS ORDERED: ALBUTEROL SULFATE HFA 90 MCG/PUFF 8 GM INHALER IH PRN (08:00)
[2019-03-05] MEDS ORDERED: LOPERAMIDE HCL 2 MG CAPSULE PO PRN (08:00)
[2019-03-05] MEDS ORDERED: IBUPROFEN 600 MG TABLET PO PRN (08:00)
[2019-03-05] MEDS ORDERED: BACITRACIN 28.4 GM OINTMENT TP PRN (08:00)
[2019-03-05] MEDS ORDERED: ONDANSETRON HCL 4 MG TABLET PO PRN (08:00)
[2019-03-05] MEDS ORDERED: MAGNESIUM HYDROXIDE SUSPENSION 30 ML UDCUP PO PRN (08:00)
[2019-03-05] MEDS ORDERED: CloNIDine HCL 0.1 MG TABLET PO PRN (08:00)
[2019-03-05] MEDS ORDERED: PETROLATUM,WHITE 28 GM JELLY TP PRN (08:00)
[2019-03-05] MEDS ORDERED: ACETAMINOPHEN 325 MG TABLET PO PRN (08:00)
[2019-03-05 08:09] LABS: CHOL/HDL RATIO 2.9 (3.9-5.7)
[2019-03-05 09:00] VITALS: BP 110/68
[2019-03-05] MEDS: ASPIRIN 81 MG CHEWABLE TABLET PO SCH (09:25)
[2019-03-05] MEDS: OMEPRAZOLE 20 MG CAPSULE PO SCH (09:25)
[2019-03-05] MEDS: GABAPENTIN 400 MG CAPSULE PO SCH ×3 (09:25→17:50)
[2019-03-05] MEDS: LISINOPRIL 20 MG TABLET PO SCH (09:25)
[2019-03-05] MEDS: SIMVASTATIN 20 MG TABLET PO SCH (09:25)
[2019-03-05] MEDS: HYDROCHLOROTHIAZIDE 25 MG TABLET PO SCH (09:26)
[2019-03-05] MEDS: DOCUSATE SODIUM 100 MG CAPSULE PO SCH (09:26)
[2019-03-05] MEDS: METHADONE HCL 10 MG TABLET PO SCH (10:30)
[2019-03-05] MEDS: BusPIRone HCL 10 MG TABLET PO SCH ×2 (12:52→17:50)
[2019-03-05 16:00] VITALS: BP 104/60
[2019-03-05] MEDS: HALOPERIDOL 5 MG TABLET PO PRN (21:34)
[2019-03-05] MEDS ORDERED: LORazepam 2 MG/ML VIAL ONE (23:25)
[2019-03-05] MEDS ORDERED: HALOPERIDOL LACTATE 5 MG/ML VIAL ONE (23:26)
[2019-03-05] MEDS ORDERED: DiphenhydrAMINE HCL 50 MG/ML VIAL ONE (23:26)
[2019-03-05] MEDS ORDERED: DiphenhydrAMINE HCL 50 MG/ML VIAL IM ONE (23:30)
[2019-03-05] MEDS ORDERED: HALOPERIDOL LACTATE 5 MG/ML VIAL IM ONE (23:30)
[2019-03-05] MEDS ORDERED: LORazepam 2 MG/ML VIAL IM ONE (23:30)
[2019-03-06] MEDS: LORazepam 2 MG TABLET PO PRN (07:05)
[2019-03-06] MEDS: HALOPERIDOL 5 MG TABLET PO PRN (07:05)
[2019-03-06] MEDS ORDERED: BuPROPion HCL XL 150 MG ER TABLET PO SCH (09:00)
[2019-03-06] MEDS ORDERED: ARIPiprazole 15 MG TABLET PO SCH (09:00)
[2019-03-06] MEDS: LISINOPRIL 20 MG TABLET PO SCH (09:52)
[2019-03-06] MEDS: ASPIRIN 81 MG CHEWABLE TABLET PO SCH (09:52)
[2019-03-06] MEDS: OMEPRAZOLE 20 MG CAPSULE PO SCH (09:52)
[2019-03-06] MEDS: BusPIRone HCL 10 MG TABLET PO SCH ×3 (09:52→17:00)
[2019-03-06] MEDS: HYDROCHLOROTHIAZIDE 25 MG TABLET PO SCH (09:52)
[2019-03-06] MEDS: DOCUSATE SODIUM 100 MG CAPSULE PO SCH (09:52)
[2019-03-06] MEDS: GABAPENTIN 400 MG CAPSULE PO SCH ×3 (09:52→17:00)
[2019-03-06] MEDS: SIMVASTATIN 20 MG TABLET PO SCH (09:52)
[2019-03-06] MEDS: METHADONE HCL 10 MG TABLET PO SCH (09:53)
[2019-03-06 10:00] VITALS: BP 122/71
[2019-03-06 15:00] VITALS: BP 130/91
[2019-03-06 21:35] VITALS: BP 134/69
[2019-03-06 21:37] VITALS: BP 134/69
[2019-03-07 05:53] VITALS: BP 124/62
[2019-03-07 08:06] VITALS: BP 116/70
== END 2019-03-07 09:10 | disposition home or self-care (01) | DRG 750 ==
LOC: EMS 19:23 → B3A 22:37
PROVIDERS: ADMIT Psychiatry & Neurology Psychiatry; ATTEND Psychiatry & Neurology Psychiatry
DX: F25.1 Schizoaffective disorder, depressive type (principal); R45.851 Suicidal ideations; G62.9 Polyneuropathy, unspecified; E78.00 Pure hypercholesterolemia, unspecified; F17.200 Nicotine dependence, unspecified, uncomplicated; G40.909 Epilepsy, unspecified, not intractable, without status epilepticus; I10 Essential (primary) hypertension; J44.9 Chronic obstructive pulmonary disease, unspecified; M19.90 Unspecified osteoarthritis, unspecified site; F12.90 Cannabis use, unspecified, uncomplicated; F19.10 Other psychoactive substance abuse, uncomplicated; Z88.8 Allergy status to other drugs, medicaments and biological substances; Z79.899 Other long term (current) drug therapy; Z79.82 Long term (current) use of aspirin; Z56.0 Unemployment, unspecified
CPT/HCPCS: 87081; 87086; G0480; J1200; J1630; J2060

== ENCOUNTER 2019-03-06 16:10 | Emergency (ER) | payer MEDICAID, OTHER ==
[~2019-03-06] VITALS: Ht 165.1 cm; Wt 62.7 kg
[~2019-03-06 16:10] MED LIST changes: +ARIP15TA2 PO; +HYDR25TA PO; -IBUP-2071 PO; -LORA10TA7 PO; +METH10 PO; +MIRT15 PO; +QUET300T2 PO
[2019-03-06] MEDS ORDERED: SODIUM CHLORIDE 0.9% 1,000 ML IV ONE ×2 (18:15→19:45)
[2019-03-06 19:00] VITALS: BP 116/59
[2019-03-06 19:03] LABS: ANION GAP 7 mmol/L (8-16); CALCIUM, TOTAL 8.1 mg/dL (8.8-10.5); CARBON DIOXIDE 27 mmol/L (22-29); CHLORIDE 107 mmol/L (98-107); CREATININE 1.15 mg/dL (0.60-1.30); GLOMERULAR FILTR. RATE CALC 48 mL/min (>60); GLUCOSE,RANDOM 95 mg/dL (70-110); POTASSIUM 3.5 mmol/L (3.5-5.1); SODIUM SERUM 141 mmol/L (136-145); UREA NITROGEN, BLOOD 20 mg/dL (7-18)
[2019-03-06 19:08] LABS: ALANINE AMINOTRANSFERASE 16 U/L (12-78); ALBUMIN 2.8 g/dL (3.4-5.0); ALKALINE PHOSPHATASE 78 U/L (46-116); ASPARTATE AMINOTRANSFERASE 41 U/L (15-37); TOTAL PROTEIN, SERUM 5.9 g/dL (6.4-8.2)
[2019-03-06 19:10] LABS: TROPONIN I < 0.02 ng/mL (0.00-0.05)
[2019-03-06 19:11] LABS: APPEARANCE,URINE CLOUDY (CLEAR); BILIRUBIN,URINE NEGATIVE (NEGATIVE); GLUCOSE, URINE (UA) NEGATIVE (NEGATIVE); KETONES,URINE NEGATIVE (NEGATIVE); LEUKOCYTE ESTERASE ,URINE LARGE (NEGATIVE); NITRATE,URINE NEGATIVE (NEGATIVE); OCCULT BLOOD,URINE TRACE (NEGATIVE); PH,URINE 5.5 (5.0-8.0); PROTEIN,URINE NEGATIVE (NEGATIVE); UROBILINOGEN,URINE 0.2 mg/dL (<=1.0)
[2019-03-06 19:13] LABS: SALICYLATE 3.7 mg/dL (2.8-20.0)
[2019-03-06 19:16] LABS: AMPHET/METH SCREEN,URINE NEGATIVE (NEGATIVE); BARBITURATE SCREEN, URINE NEGATIVE (NEGATIVE); BENZODIAZEPINES SCREEN,URINE NEGATIVE (NEGATIVE); CANNABINOID SCREEN,URINE POSITIVE (NEGATIVE); COCAINE SCREEN,URINE NEGATIVE (NEGATIVE); METHADONE SCREEN, URINE POSITIVE (NEGATIVE); OPIATE SCREEN,URINE NEGATIVE (NEGATIVE); PHENCYCLIDINE SCREEN,URINE NEGATIVE (NEGATIVE)
[2019-03-06 19:17] LABS: AMMONIA < 10 umol/L (11-32)
[2019-03-06 19:18] LABS: BILIRUBIN,TOTAL 0.1 mg/dL (0.1-1.0)
[2019-03-06 19:19] LABS: BACTERIA,URINE Few /HPF (None Seen); SQUAMOUS EPITHELIAL CELL,UR Few /LPF (None Seen); WBC,URINE 26-50 /HPF (0-5)
[2019-03-06 19:19] LABS: ACETAMINOPHEN < 2 mcg/mL (10-30)
== END 2019-03-06 21:06 | disposition home or self-care (01) ==
LOC: EMS 16:10
DX: R41.82 Altered mental status, unspecified (principal); E86.0 Dehydration; I95.9 Hypotension, unspecified; F11.90 Opioid use, unspecified, uncomplicated; F12.90 Cannabis use, unspecified, uncomplicated; E78.00 Pure hypercholesterolemia, unspecified; H26.9 Unspecified cataract; M19.90 Unspecified osteoarthritis, unspecified site; I10 Essential (primary) hypertension; J44.9 Chronic obstructive pulmonary disease, unspecified; F31.9 Bipolar disorder, unspecified; F20.9 Schizophrenia, unspecified; Z98.890 Other specified postprocedural states; Z79.899 Other long term (current) drug therapy; Z88.8 Allergy status to other drugs, medicaments and biological substances
CPT/HCPCS: 36415; 80053; 80307; 81001; 82140; 84484; 87086; 93005; 96360; 99285; G0480 ×2; G0481; J7030

== ENCOUNTER 2019-05-03 15:59 | Inpatient (IN) | payer MEDICAID, OTHER ==
[~2019-05-03] VITALS: Ht 165.1 cm; Wt 73.9 kg
[~2019-05-03 15:59] MED LIST changes: -ASPI81 PO; -METH10 PO; -TOPI25 PO
[2019-05-03] MEDS ORDERED: METH10 PO (16:32)
[2019-05-03] MEDS ORDERED: SODIUM CHLORIDE 0.9% 1,000 ML IV ONE ×2 (16:45→17:15)
[2019-05-03] MEDS ORDERED: SODIUM BICARBONATE [ADULT] 8.4% 50 MEQ/50 ML SYRINGE IVP ONE (16:45)
[2019-05-03] MEDS ORDERED: CHARCOAL/SORBITOL 50 GM/240 ML SUSPENSION PO ONE (16:45)
[2019-05-03 16:56] LABS: BASOPHILS % (AUTO) 0.5 % (0.0-2.0); EOSINOPHILS % (AUTO) 2.1 % (1.0-6.0); HEMATOCRIT 35.6 % (36-46); HEMOGLOBIN 11.6 g/dL (12.0-16.0); LYMPHOCYTES # (AUTO) 2.7 K/uL (1.0-4.8); LYMPHOCYTES % (AUTO) 27.6 % (22.0-44.0); MEAN CORPUSCULAR HGB CONC 32.7 G/dL (31.0-37.0); MEAN CORPUSCULAR VOLUME 89 fL (80-100); MONOCYTES # (AUTO) 0.9 K/uL (0.1-1.0); MONOCYTES % (AUTO) 8.6 % (2.0-9.0); NEUTROPHILS # (AUTO) 6.1 K/uL (1.8-7.7); NEUTROPHILS % (AUTO) 61.2 % (40.0-70.0); RED BLOOD CELL COUNT(AUTO) 4.01 MIL/uL (4.00-5.20); RED CELL DISTRIBUTION WIDTH 13.4 % (11.5-14.5)
[2019-05-03 17:05] LABS: ANION GAP 8 mmol/L (8-16); CALCIUM, TOTAL 9.6 mg/dL (8.8-10.5); CARBON DIOXIDE 27 mmol/L (22-29); CHLORIDE 102 mmol/L (98-107); CREATININE 1.03 mg/dL (0.60-1.30); GLOMERULAR FILTR. RATE CALC 55 mL/min (>60); GLUCOSE,RANDOM 107 mg/dL (70-110); POTASSIUM 3.6 mmol/L (3.5-5.1); SODIUM SERUM 137 mmol/L (136-145); UREA NITROGEN, BLOOD 23 mg/dL (7-18)
[2019-05-03 17:10] LABS: ALANINE AMINOTRANSFERASE 21 U/L (12-78); ALBUMIN 3.5 g/dL (3.4-5.0); ALKALINE PHOSPHATASE 65 U/L (46-116); ASPARTATE AMINOTRANSFERASE 33 U/L (15-37); BILIRUBIN,TOTAL 0.3 mg/dL (0.1-1.0); TOTAL PROTEIN, SERUM 6.6 g/dL (6.4-8.2)
[2019-05-03 17:39] LABS: PLATELET COUNT (AUTO) 82 K/uL (150-450)
[2019-05-03 17:52] LABS: ABG A-A DIFF O2 25.8 mmHg (10-20.0); ABG CARBOXYHEMOGLOBIN 4.4 % (0.0-1.5); ABG METHEMOGLOBIN 0.3 % (0.0-1.5); ABG OXYGEN CONTENT 14.9 mL/dL (15.0-23.0); ABG OXYGEN SATURATION 95.6 % (95.0-98.0); ABG OXYHEMOGLOBIN 91.1 % (94.0-100.0); ABG PCO2 38 mmHg (35-45); ABG PH 7.465 (7.35-7.450); ABG TOTAL HEMOGLOBIN 11.6 G/dL (12.0-18.0); O2 DEVICE,BLOOD GAS ROOM AIR (ROOM AIR); PO2, ARTERIAL BG 78.4 mmHg (84.0-92.0); SITE, BLOOD GAS LFT RADIAL; SOURCE, BLOOD GAS ARTERIAL; TEMPERATURE, FAHRENHEIT, BG 98.6 FAHREN (96.0-98.6)
[2019-05-03] MEDS ORDERED: LORazepam 2 MG/ML VIAL IVP ONE (18:00)
[2019-05-03 18:01] LABS: SALICYLATE 2.7 mg/dL (2.8-20.0)
[2019-05-03 18:05] LABS: ACETAMINOPHEN < 2 mcg/mL (10-30)
[2019-05-03] MEDS ORDERED: BACITRACIN 0.9 GM PACKET OINTMENT TP ONE (19:30)
[2019-05-03 19:33] LABS: AMPHET/METH SCREEN,URINE POSITIVE (NEGATIVE); BARBITURATE SCREEN, URINE NEGATIVE (NEGATIVE); BENZODIAZEPINES SCREEN,URINE NEGATIVE (NEGATIVE); CANNABINOID SCREEN,URINE POSITIVE (NEGATIVE); COCAINE SCREEN,URINE NEGATIVE (NEGATIVE); METHADONE SCREEN, URINE POSITIVE (NEGATIVE); OPIATE SCREEN,URINE POSITIVE (NEGATIVE)
[2019-05-03 19:35] LABS: PHENCYCLIDINE SCREEN,URINE NEGATIVE (NEGATIVE)
[2019-05-04 02:36] VITALS: BP 147/79
[2019-05-04] MEDS: ZOLPIDEM TARTRATE 10 MG TABLET PO PRN (02:42)
[2019-05-04] MEDS ORDERED: LOPERAMIDE HCL 2 MG CAPSULE PO PRN (07:00)
[2019-05-04] MEDS ORDERED: PETROLATUM,WHITE 28 GM JELLY TP PRN (07:00)
[2019-05-04] MEDS ORDERED: ONDANSETRON HCL 4 MG TABLET PO PRN (07:00)
[2019-05-04] MEDS ORDERED: GuaiFENesin/D-METHORPHAN [SUGAR-FREE] 200-20MG/10 ML SYRUP UDCUP PO PRN (07:00)
[2019-05-04] MEDS ORDERED: CloNIDine HCL 0.1 MG TABLET PO PRN (07:00)
[2019-05-04] MEDS ORDERED: MAG HYDROX/AL HYDROX/SIMETH ES 30 ML SUSPENSION UDCUP PO PRN (07:00)
[2019-05-04 07:12] VITALS: BP 149/80
[2019-05-04] MEDS: METHADONE HCL 10 MG TABLET PO SCH (07:42)
[2019-05-04 09:42] VITALS: BP 141/70
[2019-05-04] MEDS: LORazepam 2 MG TABLET PO PRN ×2 (10:05→16:34)
[2019-05-04] MEDS: NICOTINE 14 MG/24 HOUR PATCH TD PRN (10:06)
[2019-05-04 11:19] LABS: CHOL/HDL RATIO 2.7 (3.9-5.7)
[2019-05-04] MEDS: GABAPENTIN 400 MG CAPSULE PO SCH ×2 (14:08→16:26)
[2019-05-04 16:10] VITALS: BP 153/88
[2019-05-04] MEDS: HALOPERIDOL 5 MG TABLET PO PRN (16:34)
[2019-05-05 06:52] LABS: BASOPHILS % (AUTO) 0.6 % (0.0-2.0); EOSINOPHILS % (AUTO) 2.9 % (1.0-6.0); HEMATOCRIT 35.1 % (36-46); HEMOGLOBIN 11.5 g/dL (12.0-16.0); LYMPHOCYTES # (AUTO) 2.6 K/uL (1.0-4.8); LYMPHOCYTES % (AUTO) 33.7 % (22.0-44.0); MEAN CORPUSCULAR HEMOGLOBIN 29.4 pg (26.0-34.0); MEAN CORPUSCULAR HGB CONC 32.9 G/dL (31.0-37.0); MEAN CORPUSCULAR VOLUME 90 fL (80-100); MONOCYTES # (AUTO) 0.7 K/uL (0.1-1.0); MONOCYTES % (AUTO) 8.9 % (2.0-9.0); NEUTROPHILS # (AUTO) 4.2 K/uL (1.8-7.7); NEUTROPHILS % (AUTO) 53.9 % (40.0-70.0); PLATELET COUNT (AUTO) 179 K/uL (150-450); RED BLOOD CELL COUNT(AUTO) 3.92 MIL/uL (4.00-5.20); RED CELL DISTRIBUTION WIDTH 13.7 % (11.5-14.5)
[2019-05-05] MEDS: METHADONE HCL 10 MG TABLET PO SCH (06:56)
[2019-05-05 07:11] LABS: HEMOGLOBIN A1C 5.6 % (4.5-6.2)
[2019-05-05 07:23] LABS: ALBUMIN 2.9 g/dL (3.4-5.0); BILIRUBIN,TOTAL 0.2 mg/dL (0.1-1.0); CALCIUM, TOTAL 8.8 mg/dL (8.8-10.5); CHOL/HDL RATIO 2.9 (3.9-5.7); CREATININE 0.96 mg/dL (0.60-1.30); POTASSIUM 3.2 mmol/L (3.5-5.1); THYROID STIMULATING HORMONE 0.49 uIU/mL (0.36-3.74); TOTAL PROTEIN, SERUM 5.8 g/dL (6.4-8.2)
[2019-05-05 08:10] VITALS: BP 156/79
[2019-05-05] MEDS: LORazepam 2 MG TABLET PO PRN ×2 (08:52→17:37)
[2019-05-05] MEDS: HYDROCHLOROTHIAZIDE 25 MG TABLET PO SCH (08:53)
[2019-05-05] MEDS: MULTIVITAMINS WITH MINERALS, THERAPEUTIC TABLET PO SCH (08:54)
[2019-05-05] MEDS: SIMVASTATIN 20 MG TABLET PO SCH (08:54)
[2019-05-05] MEDS: GABAPENTIN 400 MG CAPSULE PO SCH ×3 (08:54→16:47)
[2019-05-05] MEDS: LISINOPRIL 20 MG TABLET PO SCH (08:55)
[2019-05-05] MEDS: NICOTINE 14 MG/24 HOUR PATCH TD PRN (09:06)
[2019-05-05 16:15] VITALS: BP 139/84
[2019-05-05] MEDS: OLANZapine 5 MG TABLET PO SCH (16:47)
[2019-05-06] MEDS: ACETAMINOPHEN 325 MG TABLET PO PRN (04:48)
[2019-05-06 04:52] VITALS: BP 127/79
[2019-05-06] MEDS: METHADONE HCL 10 MG TABLET PO SCH (06:01)
[2019-05-06 08:03] VITALS: BP 121/78
[2019-05-06] MEDS: HYDROCHLOROTHIAZIDE 25 MG TABLET PO SCH (10:04)
[2019-05-06] MEDS: SIMVASTATIN 20 MG TABLET PO SCH (10:04)
[2019-05-06] MEDS: MULTIVITAMINS WITH MINERALS, THERAPEUTIC TABLET PO SCH (10:04)
[2019-05-06] MEDS: POTASSIUM CHLORIDE 20 MEQ ER TABLET PO SCH (10:04)
[2019-05-06] MEDS: LORazepam 2 MG TABLET PO PRN (10:04)
[2019-05-06] MEDS: OLANZapine 5 MG TABLET PO SCH ×2 (10:04→16:34)
[2019-05-06] MEDS: LISINOPRIL 20 MG TABLET PO SCH (10:04)
[2019-05-06] MEDS: GABAPENTIN 400 MG CAPSULE PO SCH ×3 (10:04→16:33)
[2019-05-06 16:51] VITALS: BP 108/65
[2019-05-07 06:04] VITALS: BP 145/63
[2019-05-07] MEDS: METHADONE HCL 10 MG TABLET PO SCH (06:07)
[2019-05-07 08:03] VITALS: BP 101/71
[2019-05-07] MEDS: GABAPENTIN 400 MG CAPSULE PO SCH ×3 (08:25→16:59)
[2019-05-07] MEDS: HYDROCHLOROTHIAZIDE 25 MG TABLET PO SCH (08:25)
[2019-05-07] MEDS: MULTIVITAMINS WITH MINERALS, THERAPEUTIC TABLET PO SCH (08:25)
[2019-05-07] MEDS: POTASSIUM CHLORIDE 20 MEQ ER TABLET PO SCH (08:25)
[2019-05-07] MEDS: SIMVASTATIN 20 MG TABLET PO SCH (08:25)
[2019-05-07] MEDS: OLANZapine 5 MG TABLET PO SCH (08:25)
[2019-05-07] MEDS: NICOTINE 14 MG/24 HOUR PATCH TD PRN (08:30)
[2019-05-07] MEDS: DOCUSATE SODIUM 100 MG CAPSULE PO PRN (08:32)
[2019-05-07] MEDS: MAGNESIUM HYDROXIDE SUSPENSION 30 ML UDCUP PO PRN (08:32)
[2019-05-07] MEDS: LORazepam 2 MG TABLET PO PRN ×2 (08:33→12:42)
[2019-05-07] MEDS: LISINOPRIL 20 MG TABLET PO SCH (09:00)
[2019-05-07 16:30] VITALS: BP 112/74
[2019-05-07] MEDS: OLANZapine 10 MG TABLET PO SCH (16:59)
[2019-05-08] MEDS: LORazepam 2 MG TABLET PO PRN ×2 (00:02→08:53)
[2019-05-08] MEDS: ZOLPIDEM TARTRATE 10 MG TABLET PO PRN ×2 (00:02→23:10)
[2019-05-08 00:05] VITALS: BP 112/68
[2019-05-08] MEDS: HALOPERIDOL 5 MG TABLET PO PRN (02:09)
[2019-05-08] MEDS: METHADONE HCL 10 MG TABLET PO SCH (06:46)
[2019-05-08 08:33] VITALS: BP 142/76
[2019-05-08] MEDS: POTASSIUM CHLORIDE 20 MEQ ER TABLET PO SCH (08:50)
[2019-05-08] MEDS: LISINOPRIL 20 MG TABLET PO SCH (08:50)
[2019-05-08] MEDS: OLANZapine 10 MG TABLET PO SCH ×2 (08:50→17:26)
[2019-05-08] MEDS: SIMVASTATIN 20 MG TABLET PO SCH (08:50)
[2019-05-08] MEDS: GABAPENTIN 400 MG CAPSULE PO SCH ×3 (08:50→17:26)
[2019-05-08] MEDS: HYDROCHLOROTHIAZIDE 25 MG TABLET PO SCH (08:51)
[2019-05-08] MEDS: MULTIVITAMINS WITH MINERALS, THERAPEUTIC TABLET PO SCH (08:51)
[2019-05-08 17:07] VITALS: BP 107/54
[2019-05-09 03:21] VITALS: BP 116/77
[2019-05-09] MEDS: METHADONE HCL 10 MG TABLET PO SCH (06:58)
[2019-05-09 07:29] LABS: CALCIUM, TOTAL 9.6 mg/dL (8.8-10.5); CREATININE 1.18 mg/dL (0.60-1.30); POTASSIUM 4.4 mmol/L (3.5-5.1)
[2019-05-09 08:18] VITALS: BP 108/60
[2019-05-09] MEDS: POTASSIUM CHLORIDE 20 MEQ ER TABLET PO SCH (08:27)
[2019-05-09] MEDS: GABAPENTIN 400 MG CAPSULE PO SCH ×3 (08:27→16:24)
[2019-05-09] MEDS: SIMVASTATIN 20 MG TABLET PO SCH (08:27)
[2019-05-09] MEDS: MULTIVITAMINS WITH MINERALS, THERAPEUTIC TABLET PO SCH (08:27)
[2019-05-09] MEDS: LORazepam 2 MG TABLET PO PRN (08:28)
[2019-05-09] MEDS: LISINOPRIL 20 MG TABLET PO SCH (08:28)
[2019-05-09] MEDS: OLANZapine 10 MG TABLET PO SCH ×2 (08:28→16:24)
[2019-05-09] MEDS: HYDROCHLOROTHIAZIDE 25 MG TABLET PO SCH (08:29)
[2019-05-09] MEDS: NICOTINE 14 MG/24 HOUR PATCH TD PRN (08:33)
[2019-05-09 16:40] VITALS: BP 128/74
[2019-05-10] MEDS: METHADONE HCL 10 MG TABLET PO SCH (06:56)
[2019-05-10] MEDS: POTASSIUM CHLORIDE 20 MEQ ER TABLET PO SCH (08:31)
[2019-05-10] MEDS: LORazepam 2 MG TABLET PO PRN ×3 (08:31→20:04)
[2019-05-10] MEDS: OLANZapine 10 MG TABLET PO SCH ×2 (08:31→16:07)
[2019-05-10] MEDS: GABAPENTIN 400 MG CAPSULE PO SCH ×3 (08:32→16:07)
[2019-05-10] MEDS: LISINOPRIL 20 MG TABLET PO SCH (08:32)
[2019-05-10] MEDS: HYDROCHLOROTHIAZIDE 25 MG TABLET PO SCH (08:32)
[2019-05-10] MEDS: SIMVASTATIN 20 MG TABLET PO SCH (08:32)
[2019-05-10] MEDS: MULTIVITAMINS WITH MINERALS, THERAPEUTIC TABLET PO SCH (08:32)
[2019-05-10 08:40] VITALS: BP 119/71
[2019-05-10] MEDS: DOCUSATE SODIUM 100 MG CAPSULE PO PRN (09:18)
[2019-05-10] MEDS: MAGNESIUM HYDROXIDE SUSPENSION 30 ML UDCUP PO PRN (09:18)
[2019-05-10] MEDS: NICOTINE 14 MG/24 HOUR PATCH TD PRN (09:19)
[2019-05-10] MEDS: HALOPERIDOL 5 MG TABLET PO PRN ×2 (15:51→20:04)
[2019-05-10 16:29] VITALS: BP 133/69
[2019-05-10 23:57] VITALS: BP 98/59
[2019-05-11] MEDS: ZOLPIDEM TARTRATE 10 MG TABLET PO PRN ×2 (00:09→20:21)
[2019-05-11] MEDS: METHADONE HCL 10 MG TABLET PO SCH (06:57)
[2019-05-11] MEDS: GABAPENTIN 400 MG CAPSULE PO SCH (08:05)
[2019-05-11] MEDS: POTASSIUM CHLORIDE 20 MEQ ER TABLET PO SCH (08:05)
[2019-05-11] MEDS: SIMVASTATIN 20 MG TABLET PO SCH (08:06)
[2019-05-11] MEDS: LORazepam 2 MG TABLET PO PRN ×2 (08:06→15:40)
[2019-05-11] MEDS: MULTIVITAMINS WITH MINERALS, THERAPEUTIC TABLET PO SCH (08:06)
[2019-05-11] MEDS: LISINOPRIL 20 MG TABLET PO SCH (08:06)
[2019-05-11] MEDS: OLANZapine 10 MG TABLET PO SCH ×2 (08:06→16:08)
[2019-05-11] MEDS: HYDROCHLOROTHIAZIDE 25 MG TABLET PO SCH (08:06)
[2019-05-11] MEDS: NICOTINE 14 MG/24 HOUR PATCH TD PRN (08:09)
[2019-05-11 10:00] VITALS: BP 117/73
[2019-05-11] MEDS: GABAPENTIN 300 MG CAPSULE PO SCH ×2 (14:02→16:09)
[2019-05-11 16:00] VITALS: BP 119/68
[2019-05-11 17:00] VITALS: BP 132/68
[2019-05-12] MEDS: METHADONE HCL 10 MG TABLET PO SCH (06:09)
[2019-05-12 08:02] VITALS: BP 99/59
[2019-05-12] MEDS: POTASSIUM CHLORIDE 20 MEQ ER TABLET PO SCH (09:27)
[2019-05-12] MEDS: LISINOPRIL 20 MG TABLET PO SCH (09:30)
[2019-05-12] MEDS: GABAPENTIN 300 MG CAPSULE PO SCH ×3 (09:30→16:03)
[2019-05-12] MEDS: HYDROCHLOROTHIAZIDE 25 MG TABLET PO SCH (09:30)
[2019-05-12] MEDS: MULTIVITAMINS WITH MINERALS, THERAPEUTIC TABLET PO SCH (09:30)
[2019-05-12] MEDS: OLANZapine 10 MG TABLET PO SCH ×2 (09:31→16:03)
[2019-05-12] MEDS: SIMVASTATIN 20 MG TABLET PO SCH (09:31)
[2019-05-12] MEDS: HALOPERIDOL 5 MG TABLET PO PRN (10:10)
[2019-05-12] MEDS: LORazepam 2 MG TABLET PO PRN ×2 (10:10→16:03)
[2019-05-12 16:09] VITALS: BP 102/67
[2019-05-13 00:06] VITALS: BP 108/64
[2019-05-13] MEDS: IBUPROFEN 400 MG TABLET PO PRN (00:23)
[2019-05-13 06:05] VITALS: BP 104/66
[2019-05-13] MEDS: METHADONE HCL 10 MG TABLET PO SCH (06:37)
[2019-05-13] MEDS: POTASSIUM CHLORIDE 20 MEQ ER TABLET PO SCH (09:05)
[2019-05-13] MEDS: SIMVASTATIN 20 MG TABLET PO SCH (09:06)
[2019-05-13] MEDS: OLANZapine 10 MG TABLET PO SCH ×2 (09:06→17:10)
[2019-05-13] MEDS: GABAPENTIN 300 MG CAPSULE PO SCH ×3 (09:06→17:10)
[2019-05-13] MEDS: MULTIVITAMINS WITH MINERALS, THERAPEUTIC TABLET PO SCH (09:07)
[2019-05-13] MEDS: HYDROCHLOROTHIAZIDE 25 MG TABLET PO SCH (09:07)
[2019-05-13] MEDS: LISINOPRIL 20 MG TABLET PO SCH (09:07)
[2019-05-13 09:29] VITALS: BP 121/56
[2019-05-13] MEDS: NICOTINE 14 MG/24 HOUR PATCH TD PRN (11:11)
[2019-05-13] MEDS: HALOPERIDOL 5 MG TABLET PO PRN ×2 (12:25→17:11)
[2019-05-13] MEDS: LORazepam 2 MG TABLET PO PRN ×2 (12:25→17:10)
[2019-05-13 17:49] VITALS: BP 116/69
[2019-05-13] MEDS: BACITRACIN 28.4 GM OINTMENT TP SCH (18:32)
[2019-05-14] MEDS: LORazepam 2 MG TABLET PO PRN ×2 (02:59→09:55)
[2019-05-14 03:04] VITALS: BP 107/71
[2019-05-14 06:30] VITALS: BP 116/63
[2019-05-14] MEDS: METHADONE HCL 10 MG TABLET PO SCH (06:36)
[2019-05-14] MEDS: LISINOPRIL 20 MG TABLET PO SCH (09:55)
[2019-05-14] MEDS: MULTIVITAMINS WITH MINERALS, THERAPEUTIC TABLET PO SCH (09:55)
[2019-05-14] MEDS: SIMVASTATIN 20 MG TABLET PO SCH (09:55)
[2019-05-14] MEDS: BACITRACIN 28.4 GM OINTMENT TP SCH ×2 (09:55→16:25)
[2019-05-14] MEDS: HYDROCHLOROTHIAZIDE 25 MG TABLET PO SCH (09:55)
[2019-05-14] MEDS: OLANZapine 10 MG TABLET PO SCH ×2 (09:55→16:21)
[2019-05-14] MEDS: GABAPENTIN 300 MG CAPSULE PO SCH ×3 (09:55→16:22)
[2019-05-14] MEDS: POTASSIUM CHLORIDE 20 MEQ ER TABLET PO SCH (09:55)
[2019-05-14 10:09] VITALS: BP 125/80
[2019-05-14 16:05] VITALS: BP 121/77
[2019-05-15] MEDS: METHADONE HCL 10 MG TABLET PO SCH (06:45)
[2019-05-15] MEDS: POTASSIUM CHLORIDE 20 MEQ ER TABLET PO SCH (07:59)
[2019-05-15] MEDS: SIMVASTATIN 20 MG TABLET PO SCH (07:59)
[2019-05-15] MEDS: HYDROCHLOROTHIAZIDE 25 MG TABLET PO SCH (07:59)
[2019-05-15] MEDS: MULTIVITAMINS WITH MINERALS, THERAPEUTIC TABLET PO SCH (07:59)
[2019-05-15] MEDS: GABAPENTIN 300 MG CAPSULE PO SCH ×3 (07:59→16:34)
[2019-05-15] MEDS: LISINOPRIL 20 MG TABLET PO SCH (07:59)
[2019-05-15 08:00] VITALS: BP 117/64
[2019-05-15] MEDS: OLANZapine 10 MG TABLET PO SCH ×2 (08:00→16:34)
[2019-05-15] MEDS: BACITRACIN 28.4 GM OINTMENT TP SCH ×2 (08:01→16:35)
[2019-05-15] MEDS: NICOTINE 14 MG/24 HOUR PATCH TD PRN (13:53)
[2019-05-15 17:06] VITALS: BP 107/62
[2019-05-16] MEDS: METHADONE HCL 10 MG TABLET PO SCH (06:40)
[2019-05-16] MEDS: NICOTINE 14 MG/24 HOUR PATCH TD PRN (08:04)
[2019-05-16] MEDS: MULTIVITAMINS WITH MINERALS, THERAPEUTIC TABLET PO SCH (08:04)
[2019-05-16] MEDS: HYDROCHLOROTHIAZIDE 25 MG TABLET PO SCH (08:04)
[2019-05-16] MEDS: OLANZapine 10 MG TABLET PO SCH (08:04)
[2019-05-16] MEDS: POTASSIUM CHLORIDE 20 MEQ ER TABLET PO SCH (08:04)
[2019-05-16] MEDS: SIMVASTATIN 20 MG TABLET PO SCH (08:04)
[2019-05-16] MEDS: GABAPENTIN 300 MG CAPSULE PO SCH ×3 (08:04→16:11)
[2019-05-16] MEDS: BACITRACIN 28.4 GM OINTMENT TP SCH ×2 (08:05→16:13)
[2019-05-16] MEDS: LISINOPRIL 20 MG TABLET PO SCH (08:05)
[2019-05-16] MEDS: ALBUTEROL SULFATE HFA 90 MCG/PUFF 8 GM INHALER IH PRN (08:08)
[2019-05-16 08:16] VITALS: BP 118/68
[2019-05-16 16:00] VITALS: BP 107/65
[2019-05-16] MEDS: OLANZapine 7.5 MG TABLET PO SCH (16:13)
[2019-05-16] MEDS ORDERED: ZOLPIDEM TARTRATE 10 MG TABLET PO ONE (22:45)
[2019-05-17] MEDS: METHADONE HCL 10 MG TABLET PO SCH (06:27)
[2019-05-17] MEDS: BACITRACIN 28.4 GM OINTMENT TP SCH ×2 (07:59→17:26)
[2019-05-17] MEDS: ALBUTEROL SULFATE HFA 90 MCG/PUFF 8 GM INHALER IH PRN (07:59)
[2019-05-17 08:00] VITALS: BP 104/60
[2019-05-17] MEDS: POTASSIUM CHLORIDE 20 MEQ ER TABLET PO SCH (08:02)
[2019-05-17] MEDS: SIMVASTATIN 20 MG TABLET PO SCH (08:03)
[2019-05-17] MEDS: GABAPENTIN 300 MG CAPSULE PO SCH ×3 (08:03→17:26)
[2019-05-17] MEDS: MULTIVITAMINS WITH MINERALS, THERAPEUTIC TABLET PO SCH (08:03)
[2019-05-17] MEDS: OLANZapine 7.5 MG TABLET PO SCH ×3 (08:03→17:26)
[2019-05-17] MEDS: LISINOPRIL 20 MG TABLET PO SCH (08:03)
[2019-05-17] MEDS: HYDROCHLOROTHIAZIDE 25 MG TABLET PO SCH (08:03)
[2019-05-17] MEDS: NICOTINE 14 MG/24 HOUR PATCH TD PRN (08:05)
[2019-05-17 13:38] VITALS: BP 132/89
[2019-05-17 16:04] VITALS: BP 118/72
[2019-05-18] MEDS: METHADONE HCL 10 MG TABLET PO SCH (06:35)
[2019-05-18] MEDS: GABAPENTIN 300 MG CAPSULE PO SCH ×3 (08:08→16:40)
[2019-05-18] MEDS: SIMVASTATIN 20 MG TABLET PO SCH (08:08)
[2019-05-18] MEDS: MULTIVITAMINS WITH MINERALS, THERAPEUTIC TABLET PO SCH (08:08)
[2019-05-18] MEDS: LISINOPRIL 20 MG TABLET PO SCH (08:08)
[2019-05-18] MEDS: OLANZapine 7.5 MG TABLET PO SCH ×2 (08:08→16:40)
[2019-05-18] MEDS: POTASSIUM CHLORIDE 20 MEQ ER TABLET PO SCH (08:08)
[2019-05-18] MEDS: HYDROCHLOROTHIAZIDE 25 MG TABLET PO SCH (08:10)
[2019-05-18] MEDS: BACITRACIN 28.4 GM OINTMENT TP SCH ×2 (08:13→16:41)
[2019-05-18] MEDS: NICOTINE 14 MG/24 HOUR PATCH TD PRN (08:29)
[2019-05-18 10:03] VITALS: BP 130/74
[2019-05-18 16:04] VITALS: BP 119/78
[2019-05-19] MEDS: METHADONE HCL 10 MG TABLET PO SCH (06:32)
[2019-05-19] MEDS: HYDROCHLOROTHIAZIDE 25 MG TABLET PO SCH (07:58)
[2019-05-19] MEDS: BACITRACIN 28.4 GM OINTMENT TP SCH ×2 (07:58→16:34)
[2019-05-19] MEDS: SIMVASTATIN 20 MG TABLET PO SCH (07:58)
[2019-05-19] MEDS: POTASSIUM CHLORIDE 20 MEQ ER TABLET PO SCH (07:58)
[2019-05-19] MEDS: OLANZapine 7.5 MG TABLET PO SCH ×2 (07:58→16:33)
[2019-05-19] MEDS: GABAPENTIN 300 MG CAPSULE PO SCH ×3 (07:58→16:33)
[2019-05-19] MEDS: MULTIVITAMINS WITH MINERALS, THERAPEUTIC TABLET PO SCH (07:58)
[2019-05-19] MEDS: LISINOPRIL 20 MG TABLET PO SCH (07:58)
[2019-05-19 09:32] VITALS: BP 116/66
[2019-05-19 16:13] VITALS: BP 119/77
[2019-05-19] MEDS: BENZTROPINE MESYLATE 1 MG TABLET PO SCH (16:33)
[2019-05-19] MEDS: IBUPROFEN 400 MG TABLET PO PRN (18:30)
[2019-05-19] MEDS ORDERED: HALOPERIDOL LACTATE 5 MG/ML VIAL IM ONE (21:30)
[2019-05-19] MEDS ORDERED: LORazepam 2 MG/ML VIAL IM ONE (21:30)
[2019-05-19] MEDS ORDERED: DiphenhydrAMINE HCL 50 MG/ML VIAL IM ONE (21:30)
[2019-05-19] MEDS ORDERED: DiphenhydrAMINE HCL 25 MG CAPSULE PO ONE (21:45)
[2019-05-19] MEDS ORDERED: HALOPERIDOL 10 MG TABLET PO ONE (21:45)
[2019-05-19] MEDS ORDERED: LORazepam 2 MG TABLET PO ONE (21:45)
[2019-05-19] MEDS ORDERED: DiphenhydrAMINE HCL 50 MG CAPSULE PO ONE (21:45)
[2019-05-20 06:29] VITALS: BP 112/68
[2019-05-20] MEDS: METHADONE HCL 10 MG TABLET PO SCH (06:31)
[2019-05-20] MEDS: MULTIVITAMINS WITH MINERALS, THERAPEUTIC TABLET PO SCH (07:47)
[2019-05-20] MEDS: HYDROCHLOROTHIAZIDE 25 MG TABLET PO SCH (07:47)
[2019-05-20] MEDS: SIMVASTATIN 20 MG TABLET PO SCH (07:47)
[2019-05-20] MEDS: OLANZapine 7.5 MG TABLET PO SCH ×2 (07:48→16:18)
[2019-05-20] MEDS: BENZTROPINE MESYLATE 1 MG TABLET PO SCH ×2 (07:48→16:18)
[2019-05-20] MEDS: POTASSIUM CHLORIDE 20 MEQ ER TABLET PO SCH (07:48)
[2019-05-20] MEDS: GABAPENTIN 300 MG CAPSULE PO SCH ×3 (07:48→16:18)
[2019-05-20] MEDS: LISINOPRIL 20 MG TABLET PO SCH (07:49)
[2019-05-20] MEDS: BACITRACIN 28.4 GM OINTMENT TP SCH ×2 (07:49→16:19)
[2019-05-20] MEDS: NICOTINE 14 MG/24 HOUR PATCH TD PRN (08:02)
[2019-05-20 12:07] VITALS: BP 122/75
[2019-05-20 16:06] VITALS: BP 117/77
[2019-05-20] MEDS ORDERED: DiphenhydrAMINE HCL 25 MG CAPSULE PO ONE (21:15)
[2019-05-20] MEDS ORDERED: LORazepam 2 MG TABLET PO ONE (21:15)
[2019-05-20] MEDS ORDERED: HALOPERIDOL 10 MG TABLET PO ONE (21:15)
[2019-05-20] MEDS ORDERED: DiphenhydrAMINE HCL 50 MG/ML VIAL IM ONE (21:45)
[2019-05-20] MEDS ORDERED: LORazepam 2 MG/ML VIAL IM ONE (21:45)
[2019-05-20] MEDS ORDERED: HALOPERIDOL LACTATE 5 MG/ML VIAL IM ONE (21:45)
[2019-05-21] MEDS: METHADONE HCL 10 MG TABLET PO SCH (06:35)
[2019-05-21] MEDS: POTASSIUM CHLORIDE 20 MEQ ER TABLET PO SCH (08:56)
[2019-05-21] MEDS: SIMVASTATIN 20 MG TABLET PO SCH (08:57)
[2019-05-21] MEDS: LISINOPRIL 20 MG TABLET PO SCH (08:57)
[2019-05-21] MEDS: MULTIVITAMINS WITH MINERALS, THERAPEUTIC TABLET PO SCH (08:57)
[2019-05-21] MEDS: BENZTROPINE MESYLATE 1 MG TABLET PO SCH (08:57)
[2019-05-21] MEDS: GABAPENTIN 300 MG CAPSULE PO SCH ×4 (08:57→16:32)
[2019-05-21] MEDS: OLANZapine 7.5 MG TABLET PO SCH ×2 (08:57→16:32)
[2019-05-21] MEDS: HYDROCHLOROTHIAZIDE 25 MG TABLET PO SCH (08:58)
[2019-05-21] MEDS: BACITRACIN 28.4 GM OINTMENT TP SCH ×2 (09:01→16:37)
[2019-05-21 13:19] VITALS: BP 141/77
[2019-05-21 16:00] VITALS: BP 114/55
[2019-05-21] MEDS: BENZTROPINE MESYLATE 2 MG TABLET PO SCH (16:36)
[2019-05-22] MEDS: METHADONE HCL 10 MG TABLET PO SCH (06:11)
[2019-05-22] MEDS: POTASSIUM CHLORIDE 20 MEQ ER TABLET PO SCH (08:06)
[2019-05-22] MEDS: LISINOPRIL 20 MG TABLET PO SCH (08:06)
[2019-05-22] MEDS: HYDROCHLOROTHIAZIDE 25 MG TABLET PO SCH (08:06)
[2019-05-22] MEDS: OLANZapine 7.5 MG TABLET PO SCH ×2 (08:06→16:03)
[2019-05-22] MEDS: MULTIVITAMINS WITH MINERALS, THERAPEUTIC TABLET PO SCH (08:06)
[2019-05-22] MEDS: GABAPENTIN 300 MG CAPSULE PO SCH ×3 (08:07→16:03)
[2019-05-22] MEDS: BENZTROPINE MESYLATE 2 MG TABLET PO SCH ×2 (08:07→16:03)
[2019-05-22] MEDS: SIMVASTATIN 20 MG TABLET PO SCH (08:07)
[2019-05-22] MEDS: BACITRACIN 28.4 GM OINTMENT TP SCH ×2 (08:07→16:04)
[2019-05-22 08:08] VITALS: BP 134/82
[2019-05-22] MEDS: NICOTINE 14 MG/24 HOUR PATCH TD PRN (08:13)
[2019-05-22] MEDS: BusPIRone HCL 10 MG TABLET PO SCH ×3 (12:49→20:09)
[2019-05-22 16:00] VITALS: BP 119/68
[2019-05-22 20:48] VITALS: BP 124/74
[2019-05-22] MEDS: ACETAMINOPHEN 325 MG TABLET PO PRN (20:48)
[2019-05-23] MEDS: METHADONE HCL 10 MG TABLET PO SCH (06:38)
[2019-05-23 08:01] VITALS: BP 106/68
[2019-05-23] MEDS: POTASSIUM CHLORIDE 20 MEQ ER TABLET PO SCH (08:07)
[2019-05-23] MEDS: HYDROCHLOROTHIAZIDE 25 MG TABLET PO SCH (08:07)
[2019-05-23] MEDS: SIMVASTATIN 20 MG TABLET PO SCH (08:07)
[2019-05-23] MEDS: GABAPENTIN 300 MG CAPSULE PO SCH ×3 (08:07→16:06)
[2019-05-23] MEDS: BusPIRone HCL 10 MG TABLET PO SCH ×3 (08:08→20:08)
[2019-05-23] MEDS: LISINOPRIL 20 MG TABLET PO SCH (08:08)
[2019-05-23] MEDS: BENZTROPINE MESYLATE 2 MG TABLET PO SCH ×2 (08:08→16:06)
[2019-05-23] MEDS: MULTIVITAMINS WITH MINERALS, THERAPEUTIC TABLET PO SCH (08:08)
[2019-05-23] MEDS: OLANZapine 7.5 MG TABLET PO SCH ×2 (08:08→16:06)
[2019-05-23] MEDS: BACITRACIN 28.4 GM OINTMENT TP SCH ×2 (08:09→16:06)
[2019-05-23] MEDS: IBUPROFEN 400 MG TABLET PO PRN (16:06)
[2019-05-23 16:11] VITALS: BP 103/61
[2019-05-24] MEDS: METHADONE HCL 10 MG TABLET PO SCH (06:46)
[2019-05-24] MEDS: SIMVASTATIN 20 MG TABLET PO SCH (08:09)
[2019-05-24] MEDS: POTASSIUM CHLORIDE 20 MEQ ER TABLET PO SCH (08:09)
[2019-05-24] MEDS: LISINOPRIL 20 MG TABLET PO SCH (08:09)
[2019-05-24] MEDS: OLANZapine 7.5 MG TABLET PO SCH ×2 (08:09→16:01)
[2019-05-24] MEDS: GABAPENTIN 300 MG CAPSULE PO SCH ×3 (08:09→16:01)
[2019-05-24] MEDS: HYDROCHLOROTHIAZIDE 25 MG TABLET PO SCH (08:09)
[2019-05-24] MEDS: MULTIVITAMINS WITH MINERALS, THERAPEUTIC TABLET PO SCH (08:09)
[2019-05-24] MEDS: BusPIRone HCL 10 MG TABLET PO SCH ×3 (08:09→20:10)
[2019-05-24] MEDS: BENZTROPINE MESYLATE 2 MG TABLET PO SCH ×2 (08:09→16:01)
[2019-05-24] MEDS: NICOTINE 14 MG/24 HOUR PATCH TD PRN (08:16)
[2019-05-24] MEDS: BACITRACIN 28.4 GM OINTMENT TP SCH ×2 (08:17→16:01)
[2019-05-24 12:44] VITALS: BP 131/76
[2019-05-24 17:02] VITALS: BP 129/77
[2019-05-25] MEDS: ACETAMINOPHEN 325 MG TABLET PO PRN (00:22)
[2019-05-25] MEDS: METHADONE HCL 10 MG TABLET PO SCH (06:50)
[2019-05-25 08:17] VITALS: BP 152/70
[2019-05-25] MEDS: LISINOPRIL 20 MG TABLET PO SCH (09:20)
[2019-05-25] MEDS: POTASSIUM CHLORIDE 20 MEQ ER TABLET PO SCH (09:20)
[2019-05-25] MEDS: HYDROCHLOROTHIAZIDE 25 MG TABLET PO SCH (09:20)
[2019-05-25] MEDS: SIMVASTATIN 20 MG TABLET PO SCH (09:20)
[2019-05-25] MEDS: OLANZapine 7.5 MG TABLET PO SCH ×2 (09:20→16:01)
[2019-05-25] MEDS: GABAPENTIN 300 MG CAPSULE PO SCH ×3 (09:20→16:01)
[2019-05-25] MEDS: BusPIRone HCL 10 MG TABLET PO SCH ×3 (09:20→21:38)
[2019-05-25] MEDS: MULTIVITAMINS WITH MINERALS, THERAPEUTIC TABLET PO SCH (09:21)
[2019-05-25] MEDS: BENZTROPINE MESYLATE 2 MG TABLET PO SCH ×2 (09:21→16:01)
[2019-05-25] MEDS: BACITRACIN 28.4 GM OINTMENT TP SCH ×2 (09:22→16:02)
[2019-05-25] MEDS ORDERED: DiphenhydrAMINE HCL 25 MG CAPSULE PO PRN (19:15)
[2019-05-26] MEDS: METHADONE HCL 10 MG TABLET PO SCH (06:53)
[2019-05-26 08:00] VITALS: BP 148/64
[2019-05-26] MEDS: GABAPENTIN 300 MG CAPSULE PO SCH ×3 (08:14→16:10)
[2019-05-26] MEDS: LISINOPRIL 20 MG TABLET PO SCH (08:15)
[2019-05-26] MEDS: SIMVASTATIN 20 MG TABLET PO SCH (08:15)
[2019-05-26] MEDS: BENZTROPINE MESYLATE 2 MG TABLET PO SCH ×2 (08:15→16:11)
[2019-05-26] MEDS: OLANZapine 7.5 MG TABLET PO SCH ×2 (08:15→16:12)
[2019-05-26] MEDS: BusPIRone HCL 10 MG TABLET PO SCH ×3 (08:16→21:39)
[2019-05-26] MEDS: HYDROCHLOROTHIAZIDE 25 MG TABLET PO SCH (08:16)
[2019-05-26] MEDS: BACITRACIN 28.4 GM OINTMENT TP SCH ×2 (08:16→16:12)
[2019-05-26] MEDS: POTASSIUM CHLORIDE 20 MEQ ER TABLET PO SCH (08:16)
[2019-05-26] MEDS: MULTIVITAMINS WITH MINERALS, THERAPEUTIC TABLET PO SCH (08:16)
[2019-05-26 16:30] VITALS: BP 96/72
[2019-05-27 00:45] VITALS: BP 113/78
[2019-05-27] MEDS ORDERED: LORazepam 2 MG/ML VIAL IM ONE (00:45)
[2019-05-27] MEDS ORDERED: DiphenhydrAMINE HCL 50 MG/ML VIAL IM ONE (00:45)
[2019-05-27] MEDS ORDERED: HALOPERIDOL LACTATE 5 MG/ML VIAL IM ONE (00:45)
[2019-05-27] MEDS: METHADONE HCL 10 MG TABLET PO SCH (06:50)
[2019-05-27] MEDS: OLANZapine 7.5 MG TABLET PO SCH (07:51)
[2019-05-27] MEDS: LISINOPRIL 20 MG TABLET PO SCH (07:51)
[2019-05-27] MEDS: POTASSIUM CHLORIDE 20 MEQ ER TABLET PO SCH (07:51)
[2019-05-27] MEDS: BENZTROPINE MESYLATE 2 MG TABLET PO SCH ×2 (07:51→16:00)
[2019-05-27] MEDS: BusPIRone HCL 10 MG TABLET PO SCH ×3 (07:51→20:54)
[2019-05-27] MEDS: SIMVASTATIN 20 MG TABLET PO SCH (07:51)
[2019-05-27] MEDS: MULTIVITAMINS WITH MINERALS, THERAPEUTIC TABLET PO SCH (07:51)
[2019-05-27] MEDS: GABAPENTIN 300 MG CAPSULE PO SCH ×3 (07:52→16:00)
[2019-05-27] MEDS: HYDROCHLOROTHIAZIDE 25 MG TABLET PO SCH (07:52)
[2019-05-27 08:30] VITALS: BP 127/91
[2019-05-27 18:24] VITALS: BP 131/76
[2019-05-27] MEDS: OLANZapine 10 MG RAPDIS TABLET PO SCH (20:54)
[2019-05-28] MEDS: METHADONE HCL 10 MG TABLET PO SCH (06:08)
[2019-05-28] MEDS: SIMVASTATIN 20 MG TABLET PO SCH (07:52)
[2019-05-28] MEDS: GABAPENTIN 300 MG CAPSULE PO SCH ×3 (07:52→16:25)
[2019-05-28] MEDS: POTASSIUM CHLORIDE 20 MEQ ER TABLET PO SCH (07:52)
[2019-05-28] MEDS: BENZTROPINE MESYLATE 2 MG TABLET PO SCH ×2 (07:52→16:25)
[2019-05-28] MEDS: LISINOPRIL 20 MG TABLET PO SCH (07:52)
[2019-05-28] MEDS: BusPIRone HCL 10 MG TABLET PO SCH ×3 (07:52→20:32)
[2019-05-28] MEDS: OLANZapine 10 MG RAPDIS TABLET PO SCH ×2 (07:52→20:32)
[2019-05-28] MEDS: MULTIVITAMINS WITH MINERALS, THERAPEUTIC TABLET PO SCH (07:53)
[2019-05-28] MEDS: HYDROCHLOROTHIAZIDE 25 MG TABLET PO SCH (07:53)
[2019-05-28 08:34] VITALS: BP 132/77
[2019-05-28] MEDS: NICOTINE 14 MG/24 HOUR PATCH TD PRN (09:08)
[2019-05-28 16:00] VITALS: BP 132/74
[2019-05-29] MEDS: METHADONE HCL 10 MG TABLET PO SCH (06:58)
[2019-05-29] MEDS: BusPIRone HCL 10 MG TABLET PO SCH ×3 (07:55→20:41)
[2019-05-29] MEDS: BENZTROPINE MESYLATE 2 MG TABLET PO SCH ×2 (07:55→16:23)
[2019-05-29] MEDS: OLANZapine 10 MG RAPDIS TABLET PO SCH ×2 (07:55→20:42)
[2019-05-29] MEDS: MULTIVITAMINS WITH MINERALS, THERAPEUTIC TABLET PO SCH (07:55)
[2019-05-29] MEDS: SIMVASTATIN 20 MG TABLET PO SCH (07:55)
[2019-05-29] MEDS: HYDROCHLOROTHIAZIDE 25 MG TABLET PO SCH (07:56)
[2019-05-29] MEDS: LISINOPRIL 20 MG TABLET PO SCH (07:56)
[2019-05-29] MEDS: POTASSIUM CHLORIDE 20 MEQ ER TABLET PO SCH (07:56)
[2019-05-29] MEDS: NICOTINE 14 MG/24 HOUR PATCH TD PRN (07:57)
[2019-05-29] MEDS: GABAPENTIN 300 MG CAPSULE PO SCH ×3 (07:57→16:23)
[2019-05-29 09:44] VITALS: BP 138/79
[2019-05-29 17:11] VITALS: BP 91/56
[2019-05-29] MEDS ORDERED: DiphenhydrAMINE HCL 50 MG/ML VIAL IM ONE (17:30)
[2019-05-29] MEDS ORDERED: HALOPERIDOL LACTATE 5 MG/ML VIAL IM ONE (17:45)
[2019-05-29 18:30] VITALS: BP 110/82
[2019-05-30 00:05] VITALS: BP 114/62
[2019-05-30 06:26] VITALS: BP 107/65
[2019-05-30] MEDS: METHADONE HCL 10 MG TABLET PO SCH (07:00)
[2019-05-30] MEDS: GABAPENTIN 300 MG CAPSULE PO SCH ×3 (08:41→16:12)
[2019-05-30] MEDS: HYDROCHLOROTHIAZIDE 25 MG TABLET PO SCH (08:41)
[2019-05-30] MEDS: SIMVASTATIN 20 MG TABLET PO SCH (08:41)
[2019-05-30] MEDS: OLANZapine 10 MG RAPDIS TABLET PO SCH ×2 (08:45→21:07)
[2019-05-30] MEDS: POTASSIUM CHLORIDE 20 MEQ ER TABLET PO SCH (08:45)
[2019-05-30] MEDS: BENZTROPINE MESYLATE 2 MG TABLET PO SCH ×2 (08:46→16:12)
[2019-05-30] MEDS: NICOTINE 14 MG/24 HOUR PATCH TD PRN ×2 (08:47→08:52)
[2019-05-30] MEDS: BusPIRone HCL 10 MG TABLET PO SCH ×3 (08:47→21:07)
[2019-05-30] MEDS: LISINOPRIL 20 MG TABLET PO SCH (08:48)
[2019-05-30] MEDS: MULTIVITAMINS WITH MINERALS, THERAPEUTIC TABLET PO SCH (08:49)
[2019-05-30 13:55] VITALS: BP 130/80
[2019-05-30 17:24] VITALS: BP 108/63
[2019-05-30] MEDS: IBUPROFEN 400 MG TABLET PO PRN (18:11)
[2019-05-31 06:10] VITALS: BP 141/85
[2019-05-31] MEDS: METHADONE HCL 10 MG TABLET PO SCH (07:02)
[2019-05-31 08:07] VITALS: BP 132/80
[2019-05-31] MEDS: BusPIRone HCL 10 MG TABLET PO SCH ×3 (08:43→20:02)
[2019-05-31] MEDS: GABAPENTIN 300 MG CAPSULE PO SCH ×3 (08:48→16:20)
[2019-05-31] MEDS: BENZTROPINE MESYLATE 2 MG TABLET PO SCH ×2 (08:49→16:20)
[2019-05-31] MEDS: HYDROCHLOROTHIAZIDE 25 MG TABLET PO SCH (08:49)
[2019-05-31] MEDS: OLANZapine 10 MG RAPDIS TABLET PO SCH ×2 (08:49→20:02)
[2019-05-31] MEDS: POTASSIUM CHLORIDE 20 MEQ ER TABLET PO SCH (08:49)
[2019-05-31] MEDS: MULTIVITAMINS WITH MINERALS, THERAPEUTIC TABLET PO SCH (08:49)
[2019-05-31] MEDS: LISINOPRIL 20 MG TABLET PO SCH (08:49)
[2019-05-31] MEDS: NICOTINE 14 MG/24 HOUR PATCH TD PRN (08:50)
[2019-05-31] MEDS: SIMVASTATIN 20 MG TABLET PO SCH (08:59)
[2019-05-31 16:16] VITALS: BP 130/80
[2019-06-01] MEDS: METHADONE HCL 10 MG TABLET PO SCH (07:05)
[2019-06-01 07:09] VITALS: BP 126/71
[2019-06-01 08:32] VITALS: BP 104/65
[2019-06-01] MEDS: GABAPENTIN 300 MG CAPSULE PO SCH ×3 (08:41→16:49)
[2019-06-01] MEDS: MULTIVITAMINS WITH MINERALS, THERAPEUTIC TABLET PO SCH (08:42)
[2019-06-01] MEDS: LISINOPRIL 20 MG TABLET PO SCH (08:42)
[2019-06-01] MEDS: BusPIRone HCL 10 MG TABLET PO SCH ×3 (08:42→21:05)
[2019-06-01] MEDS: SIMVASTATIN 20 MG TABLET PO SCH (08:42)
[2019-06-01] MEDS: BENZTROPINE MESYLATE 2 MG TABLET PO SCH ×2 (08:42→16:49)
[2019-06-01] MEDS: OLANZapine 10 MG RAPDIS TABLET PO SCH ×2 (08:42→21:05)
[2019-06-01] MEDS: POTASSIUM CHLORIDE 20 MEQ ER TABLET PO SCH (08:42)
[2019-06-01] MEDS: HYDROCHLOROTHIAZIDE 25 MG TABLET PO SCH (08:42)
[2019-06-01 17:59] VITALS: BP 102/68
[2019-06-02] MEDS: METHADONE HCL 10 MG TABLET PO SCH (06:40)
[2019-06-02] MEDS: POTASSIUM CHLORIDE 20 MEQ ER TABLET PO SCH (08:00)
[2019-06-02] MEDS: LISINOPRIL 20 MG TABLET PO SCH (08:00)
[2019-06-02] MEDS: MULTIVITAMINS WITH MINERALS, THERAPEUTIC TABLET PO SCH (08:00)
[2019-06-02] MEDS: NICOTINE 14 MG/24 HOUR PATCH TD PRN (08:00)
[2019-06-02] MEDS: HYDROCHLOROTHIAZIDE 25 MG TABLET PO SCH (08:01)
[2019-06-02] MEDS: GABAPENTIN 300 MG CAPSULE PO SCH ×3 (08:01→16:51)
[2019-06-02] MEDS: BusPIRone HCL 10 MG TABLET PO SCH ×3 (08:01→20:56)
[2019-06-02] MEDS: OLANZapine 10 MG RAPDIS TABLET PO SCH ×2 (08:02→20:56)
[2019-06-02] MEDS: BENZTROPINE MESYLATE 2 MG TABLET PO SCH ×2 (08:02→16:51)
[2019-06-02] MEDS: SIMVASTATIN 20 MG TABLET PO SCH (08:03)
[2019-06-02 08:05] VITALS: BP 153/75
[2019-06-02 16:28] VITALS: BP 118/74
[2019-06-02] MEDS ORDERED: HALOPERIDOL LACTATE 5 MG/ML VIAL ONE (17:51)
[2019-06-02] MEDS ORDERED: DiphenhydrAMINE HCL 50 MG/ML VIAL ONE (17:52)
[2019-06-02] MEDS ORDERED: DiphenhydrAMINE HCL 50 MG/ML VIAL IM ONE (18:00)
[2019-06-02] MEDS ORDERED: HALOPERIDOL LACTATE 5 MG/ML VIAL IM ONE (18:00)
[2019-06-03 02:50] VITALS: BP 141/71
[2019-06-03] MEDS: METHADONE HCL 10 MG TABLET PO SCH (06:45)
[2019-06-03] MEDS: SIMVASTATIN 20 MG TABLET PO SCH (07:31)
[2019-06-03] MEDS: BENZTROPINE MESYLATE 2 MG TABLET PO SCH ×2 (07:31→16:31)
[2019-06-03] MEDS: GABAPENTIN 300 MG CAPSULE PO SCH ×4 (07:31→16:31)
[2019-06-03] MEDS: HYDROCHLOROTHIAZIDE 25 MG TABLET PO SCH (07:31)
[2019-06-03] MEDS: OLANZapine 10 MG RAPDIS TABLET PO SCH (07:31)
[2019-06-03] MEDS: BusPIRone HCL 10 MG TABLET PO SCH ×3 (07:31→20:29)
[2019-06-03] MEDS: LISINOPRIL 20 MG TABLET PO SCH (07:31)
[2019-06-03] MEDS: POTASSIUM CHLORIDE 20 MEQ ER TABLET PO SCH (07:31)
[2019-06-03] MEDS: MULTIVITAMINS WITH MINERALS, THERAPEUTIC TABLET PO SCH (07:32)
[2019-06-03] MEDS: NICOTINE 14 MG/24 HOUR PATCH TD PRN (07:33)
[2019-06-03 08:23] VITALS: BP 133/92
[2019-06-03] MEDS ORDERED: GABAPENTIN 300 MG CAPSULE PO SCH (13:00)
[2019-06-03] MEDS: MAGNESIUM HYDROXIDE SUSPENSION 30 ML UDCUP PO PRN (14:47)
[2019-06-03] MEDS: DOCUSATE SODIUM 100 MG CAPSULE PO PRN (14:47)
[2019-06-03] MEDS ORDERED: BISACODYL 10 MG RECTAL RECTAL SUPPOSITORY PR PRN (15:15)
[2019-06-03] MEDS: OLANZapine 5 MG RAPDIS TABLET PO SCH (16:31)
[2019-06-03 16:50] VITALS: BP 119/72
[2019-06-03] MEDS: POLYETHYLENE GLYCOL 3350 17 GM PACKET PO SCH (20:28)
[2019-06-04] MEDS: DOCUSATE SODIUM 100 MG CAPSULE PO PRN ×2 (04:26→07:46)
[2019-06-04] MEDS: METHADONE HCL 10 MG TABLET PO SCH ×2 (06:28→07:55)
[2019-06-04 06:34] VITALS: BP 119/73
[2019-06-04] MEDS: BENZTROPINE MESYLATE 2 MG TABLET PO SCH ×2 (07:45→16:30)
[2019-06-04] MEDS: MULTIVITAMINS WITH MINERALS, THERAPEUTIC TABLET PO SCH (07:45)
[2019-06-04] MEDS: POTASSIUM CHLORIDE 20 MEQ ER TABLET PO SCH (07:45)
[2019-06-04] MEDS: HYDROCHLOROTHIAZIDE 25 MG TABLET PO SCH (07:45)
[2019-06-04] MEDS: NICOTINE 14 MG/24 HOUR PATCH TD PRN (07:45)
[2019-06-04] MEDS: OLANZapine 5 MG RAPDIS TABLET PO SCH (07:45)
[2019-06-04] MEDS: SIMVASTATIN 20 MG TABLET PO SCH (07:45)
[2019-06-04] MEDS: GABAPENTIN 300 MG CAPSULE PO SCH ×3 (07:46→16:29)
[2019-06-04] MEDS: LISINOPRIL 20 MG TABLET PO SCH (07:46)
[2019-06-04] MEDS: MAGNESIUM HYDROXIDE SUSPENSION 30 ML UDCUP PO PRN (07:47)
[2019-06-04] MEDS: POLYETHYLENE GLYCOL 3350 17 GM PACKET PO SCH ×2 (07:56→16:29)
[2019-06-04] MEDS: BusPIRone HCL 10 MG TABLET PO SCH ×3 (07:57→21:45)
[2019-06-04] MEDS ORDERED: METHADONE HCL 10 MG TABLET PO SCH (09:00)
[2019-06-04 12:53] VITALS: BP 117/86
[2019-06-04] MEDS: OLANZapine 10 MG RAPDIS TABLET PO SCH (16:29)
[2019-06-04 16:45] VITALS: BP 124/78
[2019-06-05 06:28] VITALS: BP 131/67
[2019-06-05] MEDS: METHADONE HCL 10 MG TABLET PO SCH (06:30)
[2019-06-05] MEDS ORDERED: METHADONE HCL 10 MG TABLET PO SCH (07:00)
[2019-06-05 08:11] VITALS: BP 126/76
[2019-06-05] MEDS: BusPIRone HCL 10 MG TABLET PO SCH ×3 (08:15→21:00)
[2019-06-05] MEDS: HYDROCHLOROTHIAZIDE 25 MG TABLET PO SCH (08:15)
[2019-06-05] MEDS: ARIPiprazole 15 MG TABLET PO SCH (08:15)
[2019-06-05] MEDS: SIMVASTATIN 20 MG TABLET PO SCH (08:15)
[2019-06-05] MEDS: POTASSIUM CHLORIDE 20 MEQ ER TABLET PO SCH (08:15)
[2019-06-05] MEDS: GABAPENTIN 300 MG CAPSULE PO SCH ×3 (08:15→16:34)
[2019-06-05] MEDS: MULTIVITAMINS WITH MINERALS, THERAPEUTIC TABLET PO SCH (08:16)
[2019-06-05] MEDS: NICOTINE 14 MG/24 HOUR PATCH TD PRN (08:16)
[2019-06-05] MEDS: OLANZapine 10 MG RAPDIS TABLET PO SCH ×2 (08:16→16:35)
[2019-06-05] MEDS: LISINOPRIL 20 MG TABLET PO SCH (08:16)
[2019-06-05] MEDS: POLYETHYLENE GLYCOL 3350 17 GM PACKET PO SCH ×2 (08:16→16:35)
[2019-06-05] MEDS: BENZTROPINE MESYLATE 2 MG TABLET PO SCH ×2 (08:31→16:34)
[2019-06-05 17:46] VITALS: BP 122/69
[2019-06-06] MEDS: METHADONE HCL 10 MG TABLET PO SCH (06:31)
[2019-06-06] MEDS: GABAPENTIN 300 MG CAPSULE PO SCH ×3 (08:07→16:34)
[2019-06-06] MEDS: ARIPiprazole 15 MG TABLET PO SCH (08:07)
[2019-06-06] MEDS: BusPIRone HCL 10 MG TABLET PO SCH ×3 (08:07→20:45)
[2019-06-06] MEDS: OLANZapine 5 MG RAPDIS TABLET PO SCH ×2 (08:07→16:34)
[2019-06-06] MEDS: MULTIVITAMINS WITH MINERALS, THERAPEUTIC TABLET PO SCH (08:07)
[2019-06-06] MEDS: HYDROCHLOROTHIAZIDE 25 MG TABLET PO SCH (08:07)
[2019-06-06] MEDS: POLYETHYLENE GLYCOL 3350 17 GM PACKET PO SCH ×2 (08:07→16:34)
[2019-06-06] MEDS: LISINOPRIL 20 MG TABLET PO SCH (08:07)
[2019-06-06] MEDS: SIMVASTATIN 20 MG TABLET PO SCH (08:08)
[2019-06-06] MEDS: BENZTROPINE MESYLATE 2 MG TABLET PO SCH ×2 (08:08→16:34)
[2019-06-06] MEDS: POTASSIUM CHLORIDE 20 MEQ ER TABLET PO SCH (08:08)
[2019-06-06 09:59] VITALS: BP 119/63
[2019-06-06 16:43] VITALS: BP 126/80
[2019-06-06] MEDS: IBUPROFEN 400 MG TABLET PO PRN (17:10)
[2019-06-06] MEDS ORDERED: HALOPERIDOL LACTATE 5 MG/ML VIAL IM ONE (21:45)
[2019-06-06] MEDS ORDERED: DiphenhydrAMINE HCL 50 MG/ML VIAL IM ONE (21:45)
[2019-06-06] MEDS ORDERED: LORazepam 2 MG/ML VIAL IM ONE (21:45)
[2019-06-07 05:46] VITALS: BP 138/79
[2019-06-07] MEDS: METHADONE HCL 10 MG TABLET PO SCH (06:34)
[2019-06-07] MEDS: POTASSIUM CHLORIDE 20 MEQ ER TABLET PO SCH (08:02)
[2019-06-07] MEDS: POLYETHYLENE GLYCOL 3350 17 GM PACKET PO SCH ×2 (08:02→16:54)
[2019-06-07] MEDS: BusPIRone HCL 10 MG TABLET PO SCH ×3 (08:02→21:03)
[2019-06-07] MEDS: ARIPiprazole 15 MG TABLET PO SCH (08:02)
[2019-06-07] MEDS: BENZTROPINE MESYLATE 2 MG TABLET PO SCH ×2 (08:02→16:54)
[2019-06-07] MEDS: SIMVASTATIN 20 MG TABLET PO SCH (08:02)
[2019-06-07] MEDS: MULTIVITAMINS WITH MINERALS, THERAPEUTIC TABLET PO SCH (08:02)
[2019-06-07] MEDS: GABAPENTIN 300 MG CAPSULE PO SCH ×3 (08:02→16:54)
[2019-06-07] MEDS: HYDROCHLOROTHIAZIDE 25 MG TABLET PO SCH (08:03)
[2019-06-07] MEDS: LISINOPRIL 20 MG TABLET PO SCH (08:03)
[2019-06-07] MEDS: OLANZapine 5 MG RAPDIS TABLET PO SCH ×2 (08:03→16:54)
[2019-06-07] MEDS: NICOTINE 14 MG/24 HOUR PATCH TD PRN (08:30)
[2019-06-07 09:14] VITALS: BP 111/70
[2019-06-07 18:02] VITALS: BP 110/65
[2019-06-08 05:52] VITALS: BP 124/69
[2019-06-08] MEDS: METHADONE HCL 10 MG TABLET PO SCH (06:51)
[2019-06-08 08:00] VITALS: BP 106/72
[2019-06-08] MEDS: MULTIVITAMINS WITH MINERALS, THERAPEUTIC TABLET PO SCH (08:04)
[2019-06-08] MEDS: GABAPENTIN 300 MG CAPSULE PO SCH ×3 (08:04→17:24)
[2019-06-08] MEDS: ARIPiprazole 15 MG TABLET PO SCH (08:04)
[2019-06-08] MEDS: POTASSIUM CHLORIDE 20 MEQ ER TABLET PO SCH (08:04)
[2019-06-08] MEDS: BusPIRone HCL 10 MG TABLET PO SCH ×3 (08:04→22:08)
[2019-06-08] MEDS: LISINOPRIL 20 MG TABLET PO SCH (08:05)
[2019-06-08] MEDS: HYDROCHLOROTHIAZIDE 25 MG TABLET PO SCH (08:05)
[2019-06-08] MEDS: POLYETHYLENE GLYCOL 3350 17 GM PACKET PO SCH ×2 (08:05→17:28)
[2019-06-08] MEDS: SIMVASTATIN 20 MG TABLET PO SCH (08:05)
[2019-06-08] MEDS: BENZTROPINE MESYLATE 2 MG TABLET PO SCH ×2 (08:05→17:25)
[2019-06-08] MEDS: OLANZapine 5 MG RAPDIS TABLET PO SCH ×2 (08:05→17:25)
[2019-06-08] MEDS: NICOTINE 14 MG/24 HOUR PATCH TD PRN (14:58)
[2019-06-09 02:28] VITALS: BP 102/65
[2019-06-09] MEDS: METHADONE HCL 10 MG TABLET PO SCH (06:56)
[2019-06-09] MEDS: ARIPiprazole 15 MG TABLET PO SCH (07:46)
[2019-06-09] MEDS: MULTIVITAMINS WITH MINERALS, THERAPEUTIC TABLET PO SCH (07:46)
[2019-06-09] MEDS: HYDROCHLOROTHIAZIDE 25 MG TABLET PO SCH (07:46)
[2019-06-09] MEDS: POTASSIUM CHLORIDE 20 MEQ ER TABLET PO SCH (07:46)
[2019-06-09] MEDS: OLANZapine 5 MG RAPDIS TABLET PO SCH ×2 (07:47→16:21)
[2019-06-09] MEDS: SIMVASTATIN 20 MG TABLET PO SCH (07:47)
[2019-06-09] MEDS: GABAPENTIN 300 MG CAPSULE PO SCH ×3 (07:47→16:20)
[2019-06-09] MEDS: LISINOPRIL 20 MG TABLET PO SCH (07:47)
[2019-06-09] MEDS: BENZTROPINE MESYLATE 2 MG TABLET PO SCH ×2 (07:47→16:21)
[2019-06-09] MEDS: BusPIRone HCL 10 MG TABLET PO SCH ×3 (07:47→20:03)
[2019-06-09] MEDS: POLYETHYLENE GLYCOL 3350 17 GM PACKET PO SCH ×2 (07:48→16:21)
[2019-06-09] MEDS: NICOTINE 14 MG/24 HOUR PATCH TD PRN (07:56)
[2019-06-09 08:00] VITALS: BP 141/72
[2019-06-09 16:00] VITALS: BP 102/67
[2019-06-10 04:50] VITALS: BP 126/80
[2019-06-10] MEDS: IBUPROFEN 400 MG TABLET PO PRN (04:54)
[2019-06-10] MEDS: METHADONE HCL 10 MG TABLET PO SCH (06:56)
[2019-06-10] MEDS: POTASSIUM CHLORIDE 20 MEQ ER TABLET PO SCH (08:39)
[2019-06-10] MEDS: MULTIVITAMINS WITH MINERALS, THERAPEUTIC TABLET PO SCH (08:39)
[2019-06-10] MEDS: BusPIRone HCL 10 MG TABLET PO SCH ×3 (08:39→21:37)
[2019-06-10] MEDS: OLANZapine 5 MG RAPDIS TABLET PO SCH ×2 (08:39→16:58)
[2019-06-10] MEDS: ARIPiprazole 15 MG TABLET PO SCH (08:39)
[2019-06-10] MEDS: GABAPENTIN 300 MG CAPSULE PO SCH ×3 (08:39→16:57)
[2019-06-10] MEDS: POLYETHYLENE GLYCOL 3350 17 GM PACKET PO SCH ×2 (08:39→16:57)
[2019-06-10] MEDS: HYDROCHLOROTHIAZIDE 25 MG TABLET PO SCH (08:40)
[2019-06-10] MEDS: LISINOPRIL 20 MG TABLET PO SCH (08:40)
[2019-06-10] MEDS: SIMVASTATIN 20 MG TABLET PO SCH (08:40)
[2019-06-10] MEDS: BENZTROPINE MESYLATE 2 MG TABLET PO SCH ×2 (08:40→16:57)
[2019-06-10 08:57] VITALS: BP 126/73
[2019-06-10 16:46] VITALS: BP 120/69
[2019-06-11 06:14] VITALS: BP 119/70
[2019-06-11] MEDS: METHADONE HCL 10 MG TABLET PO SCH (06:47)
[2019-06-11] MEDS: POTASSIUM CHLORIDE 20 MEQ ER TABLET PO SCH (09:31)
[2019-06-11] MEDS: OLANZapine 5 MG RAPDIS TABLET PO SCH ×2 (09:31→17:53)
[2019-06-11] MEDS: GABAPENTIN 300 MG CAPSULE PO SCH ×3 (09:31→17:52)
[2019-06-11] MEDS: BusPIRone HCL 10 MG TABLET PO SCH ×3 (09:31→21:33)
[2019-06-11] MEDS: LISINOPRIL 20 MG TABLET PO SCH (09:32)
[2019-06-11] MEDS: SIMVASTATIN 20 MG TABLET PO SCH (09:32)
[2019-06-11] MEDS: MULTIVITAMINS WITH MINERALS, THERAPEUTIC TABLET PO SCH (09:32)
[2019-06-11] MEDS: BENZTROPINE MESYLATE 2 MG TABLET PO SCH ×2 (09:32→17:52)
[2019-06-11] MEDS: ARIPiprazole 15 MG TABLET PO SCH (09:32)
[2019-06-11] MEDS: HYDROCHLOROTHIAZIDE 25 MG TABLET PO SCH (09:33)
[2019-06-11] MEDS: POLYETHYLENE GLYCOL 3350 17 GM PACKET PO SCH ×2 (09:34→17:52)
[2019-06-11 09:39] VITALS: BP 121/66
[2019-06-11 16:08] VITALS: BP 118/71
[2019-06-12 00:21] VITALS: BP 106/77
[2019-06-12 06:34] VITALS: BP 113/74
[2019-06-12] MEDS: METHADONE HCL 10 MG TABLET PO SCH (06:42)
[2019-06-12 08:10] VITALS: BP 134/83
[2019-06-12] MEDS: SIMVASTATIN 20 MG TABLET PO SCH (08:28)
[2019-06-12] MEDS: POTASSIUM CHLORIDE 20 MEQ ER TABLET PO SCH (08:28)
[2019-06-12] MEDS: OLANZapine 5 MG RAPDIS TABLET PO SCH ×2 (08:28→16:19)
[2019-06-12] MEDS: POLYETHYLENE GLYCOL 3350 17 GM PACKET PO SCH ×2 (08:28→16:18)
[2019-06-12] MEDS: LISINOPRIL 20 MG TABLET PO SCH (08:28)
[2019-06-12] MEDS: MULTIVITAMINS WITH MINERALS, THERAPEUTIC TABLET PO SCH (08:28)
[2019-06-12] MEDS: BENZTROPINE MESYLATE 2 MG TABLET PO SCH ×2 (08:29→16:19)
[2019-06-12] MEDS: GABAPENTIN 300 MG CAPSULE PO SCH ×3 (08:29→16:20)
[2019-06-12] MEDS: BusPIRone HCL 10 MG TABLET PO SCH ×3 (08:29→21:39)
[2019-06-12] MEDS: ARIPiprazole 15 MG TABLET PO SCH (08:29)
[2019-06-12] MEDS: HYDROCHLOROTHIAZIDE 25 MG TABLET PO SCH (08:30)
[2019-06-12] MEDS: NICOTINE 14 MG/24 HOUR PATCH TD PRN (17:52)
[2019-06-12 19:00] VITALS: BP 127/75
[2019-06-13 06:04] VITALS: BP 103/60
[2019-06-13] MEDS: METHADONE HCL 10 MG TABLET PO SCH (06:56)
[2019-06-13] MEDS: BusPIRone HCL 10 MG TABLET PO SCH ×3 (07:32→21:00)
[2019-06-13] MEDS: MULTIVITAMINS WITH MINERALS, THERAPEUTIC TABLET PO SCH (07:32)
[2019-06-13] MEDS: ARIPiprazole 15 MG TABLET PO SCH (07:32)
[2019-06-13] MEDS: SIMVASTATIN 20 MG TABLET PO SCH (07:32)
[2019-06-13] MEDS: GABAPENTIN 300 MG CAPSULE PO SCH ×3 (07:32→16:46)
[2019-06-13] MEDS: HYDROCHLOROTHIAZIDE 25 MG TABLET PO SCH (07:33)
[2019-06-13] MEDS: POLYETHYLENE GLYCOL 3350 17 GM PACKET PO SCH ×2 (07:33→16:46)
[2019-06-13] MEDS: BENZTROPINE MESYLATE 2 MG TABLET PO SCH ×2 (07:33→17:00)
[2019-06-13] MEDS: NICOTINE 14 MG/24 HOUR PATCH TD PRN (07:33)
[2019-06-13] MEDS: LISINOPRIL 20 MG TABLET PO SCH (07:33)
[2019-06-13] MEDS: POTASSIUM CHLORIDE 20 MEQ ER TABLET PO SCH (07:33)
[2019-06-13] MEDS: OLANZapine 5 MG RAPDIS TABLET PO SCH ×2 (07:34→17:00)
[2019-06-13 08:00] VITALS: BP 112/75
[2019-06-13 18:03] VITALS: BP 99/65
[2019-06-13] MEDS ORDERED: DiphenhydrAMINE HCL 50 MG/ML VIAL IM ONE (21:15)
[2019-06-14] MEDS: METHADONE HCL 10 MG TABLET PO SCH (06:49)
[2019-06-14] MEDS: MULTIVITAMINS WITH MINERALS, THERAPEUTIC TABLET PO SCH (07:43)
[2019-06-14] MEDS: SIMVASTATIN 20 MG TABLET PO SCH (07:43)
[2019-06-14] MEDS: POTASSIUM CHLORIDE 20 MEQ ER TABLET PO SCH (07:43)
[2019-06-14] MEDS: BENZTROPINE MESYLATE 2 MG TABLET PO SCH ×2 (07:43→17:17)
[2019-06-14] MEDS: LISINOPRIL 20 MG TABLET PO SCH (07:43)
[2019-06-14] MEDS: BusPIRone HCL 10 MG TABLET PO SCH ×3 (07:43→21:41)
[2019-06-14] MEDS: ARIPiprazole 15 MG TABLET PO SCH (07:43)
[2019-06-14] MEDS: HYDROCHLOROTHIAZIDE 25 MG TABLET PO SCH (07:43)
[2019-06-14] MEDS: NICOTINE 14 MG/24 HOUR PATCH TD PRN (07:45)
[2019-06-14] MEDS: POLYETHYLENE GLYCOL 3350 17 GM PACKET PO SCH ×2 (07:46→17:17)
[2019-06-14] MEDS: OLANZapine 5 MG RAPDIS TABLET PO SCH ×2 (07:46→17:17)
[2019-06-14] MEDS: DOCUSATE SODIUM 100 MG CAPSULE PO PRN (07:46)
[2019-06-14] MEDS: GABAPENTIN 300 MG CAPSULE PO SCH ×3 (07:46→17:17)
[2019-06-14 08:42] VITALS: BP 117/65
[2019-06-14 18:49] VITALS: BP 121/77
[2019-06-15 06:26] VITALS: BP 111/61
[2019-06-15] MEDS: METHADONE HCL 10 MG TABLET PO SCH (06:28)
[2019-06-15] MEDS: POTASSIUM CHLORIDE 20 MEQ ER TABLET PO SCH (08:06)
[2019-06-15] MEDS: GABAPENTIN 300 MG CAPSULE PO SCH ×3 (08:06→16:18)
[2019-06-15] MEDS: BusPIRone HCL 10 MG TABLET PO SCH ×3 (08:07→22:10)
[2019-06-15] MEDS: SIMVASTATIN 20 MG TABLET PO SCH (08:07)
[2019-06-15] MEDS: ARIPiprazole 15 MG TABLET PO SCH (08:07)
[2019-06-15] MEDS: MULTIVITAMINS WITH MINERALS, THERAPEUTIC TABLET PO SCH (08:08)
[2019-06-15] MEDS: BENZTROPINE MESYLATE 2 MG TABLET PO SCH ×2 (08:08→16:18)
[2019-06-15] MEDS: OLANZapine 5 MG RAPDIS TABLET PO SCH (08:09)
[2019-06-15] MEDS: HYDROCHLOROTHIAZIDE 25 MG TABLET PO SCH (08:09)
[2019-06-15] MEDS: LISINOPRIL 20 MG TABLET PO SCH (08:10)
[2019-06-15] MEDS: POLYETHYLENE GLYCOL 3350 17 GM PACKET PO SCH ×2 (08:10→16:42)
[2019-06-15] MEDS: NICOTINE 14 MG/24 HOUR PATCH TD PRN (08:23)
[2019-06-15 08:52] VITALS: BP 124/77
[2019-06-15 16:50] VITALS: BP 108/60
[2019-06-16 01:09] VITALS: BP 108/57
[2019-06-16] MEDS: METHADONE HCL 10 MG TABLET PO SCH (06:29)
[2019-06-16 06:30] VITALS: BP 105/56
[2019-06-16 09:16] VITALS: BP 122/67
[2019-06-16] MEDS: POLYETHYLENE GLYCOL 3350 17 GM PACKET PO SCH ×2 (09:37→16:48)
[2019-06-16] MEDS: BENZTROPINE MESYLATE 2 MG TABLET PO SCH ×2 (09:38→16:46)
[2019-06-16] MEDS: NICOTINE 14 MG/24 HOUR PATCH TD PRN (09:38)
[2019-06-16] MEDS: DOCUSATE SODIUM 100 MG CAPSULE PO PRN (09:39)
[2019-06-16] MEDS: BusPIRone HCL 10 MG TABLET PO SCH ×2 (09:39→16:46)
[2019-06-16] MEDS: POTASSIUM CHLORIDE 20 MEQ ER TABLET PO SCH (09:39)
[2019-06-16] MEDS: SIMVASTATIN 20 MG TABLET PO SCH (09:40)
[2019-06-16] MEDS: ARIPiprazole 15 MG TABLET PO SCH (09:40)
[2019-06-16] MEDS: HYDROCHLOROTHIAZIDE 25 MG TABLET PO SCH (09:40)
[2019-06-16] MEDS: MULTIVITAMINS WITH MINERALS, THERAPEUTIC TABLET PO SCH (09:40)
[2019-06-16] MEDS: LISINOPRIL 20 MG TABLET PO SCH (09:40)
[2019-06-16] MEDS: GABAPENTIN 300 MG CAPSULE PO SCH ×3 (09:40→16:47)
[2019-06-16] MEDS ORDERED: ARIP15TA2 PO (14:46)
[2019-06-16] MEDS ORDERED: BENZ2TAB10 PO (14:46)
[2019-06-16] MEDS ORDERED: BUSP10TA23 PO (14:47)
[2019-06-16] MEDS ORDERED: GABA-531 PO (14:47)
[2019-06-16] MEDS ORDERED: LISI-662 PO (14:52)
[2019-06-16] MEDS ORDERED: HYDR25TA PO (14:52)
[2019-06-16] MEDS ORDERED: METH10 PO (14:53)
[2019-06-16] MEDS ORDERED: MULT-248 PO (14:55)
[2019-06-16] MEDS ORDERED: POLY17PO PO (14:56)
[2019-06-16] MEDS ORDERED: SIMV-260 PO (14:57)
[2019-06-16] MEDS ORDERED: KDUR20 PO (14:57)
== END 2019-06-16 17:45 | disposition home or self-care (01) | DRG 750 ==
LOC: EMS 16:00 → 3EI 05-04 01:26 → 3EC 05-14 16:51
PROVIDERS: ADMIT Psychiatry & Neurology Psychiatry; ATTEND Psychiatry & Neurology Psychiatry
DX: F25.1 Schizoaffective disorder, depressive type (principal); I95.9 Hypotension, unspecified; F11.20 Opioid dependence, uncomplicated; N18.3 Chronic kidney disease, stage 3 (moderate); G40.909 Epilepsy, unspecified, not intractable, without status epilepticus; Z59.0 Homelessness; Z91.14 Patient's other noncompliance with medication regimen; D64.9 Anemia, unspecified; E78.00 Pure hypercholesterolemia, unspecified; E78.5 Hyperlipidemia, unspecified; E87.6 Hypokalemia; F31.9 Bipolar disorder, unspecified; I12.9 Hypertensive chronic kidney disease with stage 1 through stage 4 chronic kidney disease, or unspecified chronic kidney disease; J44.9 Chronic obstructive pulmonary disease, unspecified; K56.41 Fecal impaction; M79.7 Fibromyalgia; R00.0 Tachycardia, unspecified; F17.210 Nicotine dependence, cigarettes, uncomplicated; Z91.5 Personal history of self-harm; Z79.899 Other long term (current) drug therapy; Z88.8 Allergy status to other drugs, medicaments and biological substances
CPT/HCPCS: 36600; 74019; 82805; 83036; 84443; 87081; 99291; G0480; G0481; J1200; J1630; J2060; J3230; J3490; J3535; J7030; Q0162